=== PATIENT | male | born 1945 | race Caucasian/White ===

== ENCOUNTER → 2021-05-16 12:54 | Outpatient (CLI) | payer MEDICARE, OTHER, SELFPAY ==
--- NOTE | ~2021-05-16 | XR_ITS ---
XR chest 2V DATE: 05/16/2021 13:25 INDICATION: Cough. Acute bronchitis. TECHNIQUE: 2 views COMPARISON: 08/15/2015 2 view chest FINDINGS: There is prominent bilateral hyperinflation, relative flattening of the diaphragm, increase d retrosternal airspace, consistent with severe COPD. Relatively sparse lung markings in the upper vero ng zones especially on the right, likely due to bullous emphysema. There is interval patchy infiltrate in the right mid and particularly lower lung zone and left lower lobe since 08/15/2015, consistent with bilateral pneumonia and/or aspiration pneumonitis. There is levoscoliosis of the thoracic spine. There is diffuse osteopenia. IMPRESSION: Bilateral pulmonary infiltrates, including mid right and bilateral lower lung zones, sugg esting bilateral pneumonia. Aspiration pneumonitis is another consideration. Severe bullous emphysema Reviewed, dictated and finalized at location A. IMPRESSION: Bilateral pulmonary infiltrates, including mid right and bilateral lower lung zones, suggesting bilateral pneumonia. Aspiration pneumonitis is ano ther consideration. Severe bullous emphysema
== END ==
PROVIDERS: PCP Nurse Practitioner Family; Visit Provider Nurse Practitioner Family
DX: J20.9 Acute bronchitis, unspecified (principal); M85.88 Other specified disorders of bone density and structure, other site; F41.9 Anxiety disorder, unspecified; R91.8 Other nonspecific abnormal finding of lung field; J43.9 Emphysema, unspecified
CPT/HCPCS: 71046

== ENCOUNTER 2021-08-22 08:00 | Outpatient (CLI) | payer MEDICARE, OTHER, SELFPAY ==
--- NOTE | 2021-08-22 13:32 | WPDSIXMINUTE ---
Six Minute Walk Procedure Procedure Performed Pulmonary Stress Test (6 min walk) Six Minute Walk Six Minute Walk: This is a 6 minute walk test. The test was performed and interpreted in accordance with the 2014 ERS/ATS task force guidelines. Findings: The patient's resting room air oxygen saturation measured by pulse oximetry was 97% and heart rate was 71 bpm. Patient ambulated for 396 meters and oxygen saturation remained 92 to 98%. Heart rate at the end of the study was 103 bpm. The patient did not qualify for supplemental oxygen at rest or with ambulation. There are no prior studies for comparison.
--- NOTE | 2021-08-22 13:32 | WPDPFTINT ---
PFT Procedure Performed PFT Procedure Performed Spirometry with Pre/Post Bronchodilator Plethysmography (Lung Vol) Diffusing Cap (DLCO) Flow Vol Loop PFT Interpretation This is a pulmonary function test with pre and post-bronchodilator spirometry, plethysmography and diffusing capacity. The test was performed and results interpreted in accordance with the 2019 and 2005 ATS/ERS Task Force guidelines respectively using the Global Lung Function Initiative-2012 reference equations. Patient demonstrated good effort and cooperation. Reproducibility criteria were met. The quality of the pre bronchodilator spirometry maneuver was Grade A and post bronchodilator spirometry maneuver was Grade A. Findings: Spirometry: There is decreased maximal expiratory air flow at all lung volumes with concave expiratory flow tracing. The pre bronchodilator FVC is 3.58 L, 82% predicted. The pre bronchodilator FEV1 is 2.05 L, 63% predicted. The pre bronchodilator FEV1: FVC ratio is 57%. The post bronchodilator FVC is 4.44 L, representing a 24% increase. The post bronchodilator FEV1 is 2.25 L, representing a 10% increase. The post bronchodilator FEV1: FVC ratio is 51%. Plethysmography: The total lung capacity is 9.26 L, 124% predicted. Functional residual capacity is 4.50 L, 112% predicted. The residual volume is 3.90 L, 146% predicted. Diffusing capacity: The diffusing capacity unadjusted for hemoglobin and carboxyhemoglobin is 9.5, 37% predicted. The diffusing capacity adjusted for alveolar volume is 1.29, 35% predicted. Impression: There is a moderate obstructive abnormality with significant improvement after inhaling a single dose of albuterol. The increase in residual volume is consistent with air trapping from an obstructive abnormality. Hyperinflation is present is demonstrated by the increase in total lung capacity and is consistent with an obstructive abnormality. The diffusing capacity unadjusted for hemoglobin and carboxyhemoglobin is severely decreased and remains severely decreased when adjusted for alveolar volume. There are no prior studies for comparison
== END 2021-08-22 08:01 | disposition home or self-care (01) ==
LOC: ANHPFT 08:05
PROVIDERS: PCP Nurse Practitioner; Visit Provider Nurse Practitioner
DX: J43.9 Emphysema, unspecified (principal)
CPT/HCPCS: 94060; 94618; 94726; 94729

== ENCOUNTER → 2021-08-22 12:43 | Outpatient (CLI) | payer MEDICARE, OTHER, SELFPAY ==
--- NOTE | ~2021-08-22 | CT_ITS ---
EXAMINATION: CT lung screening DATE: 08/22/2021 12:59 INDICATION: Personal history of nicotine dependence, current smoker with 88.5 pack year history TECHNIQUE: Computed tomography (CT) of the chest was performed without intravenous contrast. The dose -length product (DLP) was 52.58 mGy-cm. Automated exposure control and iterative reconstruction techn [employer] were employed. COMPARISON: None FINDINGS: There is severe emphysema. There is a 7 mm nodule of the right middle lobe on image 110. No pleural effusion or pneumothorax. No pathologically enlarged thoracic lymph nodes are identified. Th e heart size is normal. Calcified coronary artery atherosclerosis is noted. There is mild thoracic sp ondylosis. IMPRESSION: 1. Lung-RADS category 3: Probably benign. Followup with noncontrast low-dose chest CT in 6 months is recommended. Reviewed, dictated and finalized at location F. IMPRESSION: 1. Lung-RADS category 3: Probably benign. Followup with noncontrast low-dose ch est CT in 6 months is recommended.
== END ==
PROVIDERS: PCP Nurse Practitioner Family; Visit Provider Nurse Practitioner
DX: Z12.2 Encounter for screening for malignant neoplasm of respiratory organs (principal); Z87.891 Personal history of nicotine dependence
CPT/HCPCS: 71271

== ENCOUNTER → 2022-02-18 10:18 | Outpatient (CLI) | payer MEDICARE, OTHER, SELFPAY ==
--- NOTE | ~2022-02-18 | CT_ITS ---
EXAMINATION: CT diagnostic chest wo con DATE: 02/18/2022 10:37 INDICATION: Solitary pulmonary nodule TECHNIQUE: Computed tomography (CT) of the chest was performed without intravenous contrast. The dose -length product (DLP) was 47.95 mGy-cm. Automated exposure control and iterative reconstruction techn ique were employed. COMPARISON: 08/22/2021 FINDINGS: There is severe emphysema. The previously described right middle lobe nodule is no longer e vident, consistent with resolved infection or inflammation. There is a new 8 mm nodule of the right l ower lobe on image 106. No pleural effusion or pneumothorax. No pathologically enlarged thoracic lymp h nodes are identified. The heart size is normal. There is mild thoracic spondylosis. IMPRESSION: 1. Resolved right middle lobe nodule and new right lower lobe nodule, likely infectious or inflammato ry. Follow-up low-dose chest CT in three months is recommended. Reviewed, dictated and finalized at location B. [employer] IMPRESSION: 1. Resolved right middle lobe nodule and new right lower lobe nodule, likely in fectious or inflammatory. Follow-up low-dose chest CT in three months is recomm ended.
== END ==
PROVIDERS: PCP Nurse Practitioner Family; Visit Provider Nurse Practitioner
DX: R91.1 Solitary pulmonary nodule (principal)
CPT/HCPCS: 71250

== ENCOUNTER 2022-05-19 09:48 | Outpatient (CLI) | payer MEDICARE, OTHER, SELFPAY ==
--- NOTE | ~2022-05-19 | CT_ITS ---
CT Scan of the Chest without Contrast: Clinical Indication: Solitary pulmonary nodule Technique: Contiguous sections were acquired throughout the chest without intravenous contrast. Dose reduction technique was used on this scan by utilizing automated exposure control and iterative recon struction technique. The dose-length product (DLP) was 41.21 mGy-cm. COMPARISON: 02/18/2022 Findings: There is no evidence of any significant mediastinal, hilar or axillary lymphadenopathy. The mediastin al soft tissues appear normal. There is no evidence of pleural or pericardial effusion. Severe emphysema is unchanged. No suspicious pulmonary nodule seen. Presented right lower lobe pulmon claudia nodules resolved. Images through the upper abdomen reveal no abnormalities. Impression: Severe emphysema. No suspicious pulmonary nodule seen. Reviewed, dictated and finalized at [facility]. Impression: Severe emphysema. No suspicious pulmonary nodule seen.
== END 2022-05-19 09:49 ==
PROVIDERS: PCP Nurse Practitioner Family; Visit Provider Nurse Practitioner
DX: R91.1 Solitary pulmonary nodule (principal); J43.9 Emphysema, unspecified
CPT/HCPCS: 71250

== ENCOUNTER 2022-05-30 11:30 | Emergency (ER) | payer MEDICARE, SELFPAY ==
--- NOTE | 2022-05-30 11:32 | ED.GENADULT ---
HPI - General Adult General Chief complaint: Urogenital-Male Stated complaint: uti/thrush Time Seen by Provider: 05/30/22 11:49 Source: patient, RN notes reviewed and old records reviewed Mode of arrival: ambulatory Limitations: no limitations History of Present Illness HPI narrative: 77-year-old male presents to the [facility] with concerns for a UTI and strep throat. Patient reports that he has had intermittent sore throat for about 2-3 weeks. Patient also reports urinary symptoms, frequency, urgency for 3-4 weeks. Reports he burning about a week to 2 weeks ago. States that his urine smelled funny. Denies any fevers. No nausea or vomiting. No urinary retention Denies abdominal pain, chest pain, shortness of breath Related Data Home Medications Medication Instructions Recorded Confirmed atorvastatin 40 mg tablet 40 mg PO DAILY 05/30/22 05/30/22 budesonide 160 mcg-glycopyr 9 1 inh inhalation DAILY 05/30/22 05/30/22 mcg-formot 4.8 mcg/actuation HFA inhaler (Breztri Aerosphere) lisinopril 5 mg tablet 5 mg PO DAILY 05/30/22 05/30/22 Allergies Allergy/AdvReac Type Severity Reaction Status Date / Time NKFA Allergy Unknown Other Uncoded 05/30/22 11:38 SULFA Allergy Unknown Other Uncoded 05/30/22 11:38 Review of Systems Review of Systems: All systems reviewed & are unremarkable except as noted in HPI and below Constitutional: Constitutional: Reports no additional constitutional complaints Eyes: Eyes: Reports no additional eye complaints ENT: Reports as per HPI Cardiovascular: Cardiovascular: Reports no additional cardiovascular complaints, Denies chest pain and Denies dyspnea Respiratory: Respiratory: Reports no additional respiratory complaints, Denies chest congestion, Denies cough and Denies dyspnea Gastrointestinal: Gastrointestinal: Reports no additional gastrointestinal complaints, Denies abdominal pain, Denies nausea and Denies vomiting Genitourinary: Genitourinary: Reports as per HPI Musculoskeletal: Musculoskeletal: Reports no additional musculoskeletal complaints Integumentary/Breasts: Skin/Breast: Reports system reviewed and no additional complaints, except as docu Neurologic: Reports system reviewed and no additional complaints, except as documented Psychiatric: Psychiatric: Reports no additional psychiatric complaints Allergic/Immunologic: Allergic/Immunologic: Reports no additional allergic/immunologic complaints PMFSH Past Medical History Medical History (Updated 04/08/23 @ 19:13 by Lindsey Fonseca APRN) High cholesterol History of high blood pressure Comments At the time of my signature, I reviewed and agree with the nursing past medical, surgical, social, and family history. There is no relevant family history pertinent to the patient complaint. Exam Const: General: cooperative, healthy appearing, comfortable, no acute distress, well developed, alert and well nourished Nutritional Appearance: well nourished and thin Orientation/consciousness: patient oriented x3 Limitations: no limitations HENMT: Head: normal to inspection Ears: hearing grossly normal bilaterally and external ears normal Face/Nose/Sinus: Normal external nose present, Normal nares present, Normal nasal mucous membranes and turbinates present and normal facial exam Face and sinus: normal facial exam Mouth: Yes Normal oral and palatal mucosa present, Yes lip normal and Yes moist mucous membranes Throat: posterior oropharynx normal, uvula midline and postnasal drainage Other: Upper dentures in place Eyes: General: appearance normal, both eyes and all related structures Alignment and Position: alignment normal Periorbital: periorbital findings normal Conjunctivae: conjunctivae normal Pupils: Equal, round and reactive pupils present EOM: EOMs intact bilaterally Neck: Neck: normal visual inspection, full ROM, no lymphadenopathy and no meningeal signs Chest: Chest palpation & inspection: normal inspection of t
[2022-05-30 11:41] VITALS: BP 119/66; PULSE 95; RESP 16; TEMP 36.3; O2SAT 98
== END 2022-05-30 12:15 | disposition home or self-care (01) ==
PROVIDERS: Emergency Provider Nurse Practitioner; PCP Nurse Practitioner Family
DX: R30.0 Dysuria (principal); R09.82 Postnasal drip; E78.00 Pure hypercholesterolemia, unspecified; I10 Essential (primary) hypertension
CPT/HCPCS: 81003; 87081; 87086; 87088; 87880; 99213; G0463

== ENCOUNTER 2023-02-08 11:20 | Outpatient (CLI) | payer MEDICARE, OTHER, SELFPAY ==
--- NOTE | ~2023-02-08 | US_ITS ---
Renal-Bladder ultrasound Clinical History: Hematuria Technique: Real-time sonographic imaging of the kidneys and urinary bladder was performed. Findings: The right kidney measures 10.9 cm in length and the left kidney measures 11.4 cm. There is no hydronephrosis or renal calculus identified. Renal cortical echogenicity is within normal limits. No renal mass lesion is identified. The urinary bladder is moderately distended at the time of this exam. No intraluminal echoes are iden tified. No abnormal wall thickening is seen. Impression: Unremarkable ultrasound of the kidneys and urinary bladder. Reviewed, dictated and finalized at location . [employer] Impression: Unremarkable ultrasound of the kidneys and urinary bladder.
== END 2023-02-08 11:21 ==
LOC: MICIMG 11:23
PROVIDERS: PCP Family Medicine; Visit Provider Family Medicine
DX: R31.9 Hematuria, unspecified (principal)
CPT/HCPCS: 76775

== ENCOUNTER 2023-05-10 08:46 | Outpatient (CLI) | payer MEDICARE, OTHER, SELFPAY ==
--- NOTE | ~2023-05-10 | CT_ITS ---
CT Scan of the Chest without Contrast: Clinical Indication: Lung cancer screening, smoking history Technique: Contiguous sections were acquired throughout the chest without intravenous contrast. Dose reduction technique was used on this scan by utilizing automated exposure control and iterative recon struction technique. The dose-length product (DLP) was 41.51 mGy-cm. COMPARISON: 05/11/2022 Findings: There is no evidence of any significant mediastinal, hilar or axillary lymphadenopathy. The mediastin al soft tissues appear normal. There is no evidence of pleural or pericardial effusion. Severe emphysema again noted. There is a large area of bright lower lobe consolidation with some air bronchograms present. There is focal area somewhat nodular consolidation at the left lung base. Images through the upper abdomen reveal no abnormalities. Impression: Lung RADS 2-S: Benign appearance. 12 month follow-up screening CT advised. Extensive right lower lobe consolidation and focal nodular consolidation left lower lobe. Findings co uld reflect pneumonia and/or atelectasis, however underlying neoplasm cannot be excluded. Short-term follow-up exam in 1-2 months recommended after appropriate interval therapy. Severe emphysema. Reviewed, dictated and finalized at location . Impression: Lung RADS 2-S: Benign appearance. 12 month follow-up screening CT advised. Extensive right lower lobe consolidation and focal nodular consolidation left l ower lobe. Findings could reflect pneumonia and/or atelectasis, however underly ing neoplasm cannot be excluded. Short-term follow-up exam in 1-2 months recomm ended after appropriate interval therapy. Severe emphysema.
== END 2023-05-10 08:47 ==
LOC: MICIMG 08:49
DX: Z12.2 Encounter for screening for malignant neoplasm of respiratory organs (principal); F17.210 Nicotine dependence, cigarettes, uncomplicated; J43.9 Emphysema, unspecified
CPT/HCPCS: 71271

== ENCOUNTER 2023-06-18 10:16 | Outpatient (CLI) | payer MEDICARE, OTHER, SELFPAY ==
--- NOTE | ~2023-06-18 | CT_ITS ---
CT Scan of the Chest without Contrast: Clinical Indication: Pneumonia Technique: Contiguous sections were acquired throughout the chest without intravenous contrast. Dose reduction technique was used on this scan by utilizing automated exposure control and iterative recon struction technique. The dose-length product (DLP) was 158.35 mGy-cm. COMPARISON: 05/10/2023 Findings: There is no evidence of any significant mediastinal, hilar or axillary lymphadenopathy. The mediastin al soft tissues appear normal. There is no evidence of pleural or pericardial effusion. Severe COPD/emphysema again present. There is improving focal consolidation the left lung base, mandy tible with improving pneumonia or resolving atelectatic change. Patchy consolidation is present throu ghout the right lower lobe, with additional involvement in the right middle lobe and inferior right u pper lobe, more extensive as compared to prior exam. There is additional focal consolidation in the p eripheral, inferior right upper lobe, new from prior exam (axial image 71). Images through the upper abdomen reveal increasing caliber of the visualized distal abdominal aorta w hich measures up to 3.3 cm in maximum diameter. Impression: Worsening patchy consolidation the right lower lobe with additional involvement in the right upper lo be and right middle lobe as compared to prior exam. Findings suggest worsening pneumonia. Underlying neoplasm cannot be excluded. Stable underlying severe COPD/emphysema. Improving atelectasis or pneumonia at the left lung base. Suspected infrarenal abdominal aortic aneurysm, partially imaged. Consider dedicated abdominal pelvic imaging to further assess. Reviewed, dictated and finalized at [facility]. Impression: Worsening patchy consolidation the right lower lobe with additional involvement in the right upper lobe and right middle lobe as compared to prior exam. Findi ngs suggest worsening pneumonia. Underlying neoplasm cannot be excluded. Stable underlying severe COPD/emphysema. Improving atelectasis or pneumonia at the left lung base. Suspected infrarenal abdominal aortic aneurysm, partially imaged. Consider dedi cated abdominal pelvic imaging to further assess.
== END 2023-06-18 10:17 ==
DX: J18.9 Pneumonia, unspecified organism (principal); R91.8 Other nonspecific abnormal finding of lung field
CPT/HCPCS: 71250

== ENCOUNTER 2023-12-13 09:19 | Outpatient (CLI) | payer MEDICARE, OTHER, SELFPAY ==
--- NOTE | ~2023-12-13 | CT_ITS ---
CT Scan of the Chest without Contrast: Clinical Indication: Pneumonia Technique: Contiguous sections were acquired throughout the chest without intravenous contrast. Dose reduction technique was used on this scan by utilizing automated exposure control and iterative recon struction technique. The dose-length product (DLP) was 156.58 mGy-cm. COMPARISON: 06/18/2023 Findings: There is no evidence of any significant mediastinal, hilar or axillary lymphadenopathy. There are ath erosclerotic calcifications of the aorta and coronary arteries. There is no evidence of pleural or pericardial effusion. Severe emphysema present. Probable scattered areas of parenchymal scarring. No definite acute pulmona ry consolidation evident. Previous noted right lower lobe pneumonia is essentially completely resolve d. Images through the upper abdomen reveal probable partially imaged infrarenal abdominal aortic aneurys m measuring at least 3 cm in diameter. Impression: Severe emphysema with areas of scattered scarring. Previously noted pneumonia is essentially complete ly resolved. Probable partially imaged infrarenal abdominal aortic aneurysm, measuring at least 3 cm in diameter. Consider dedicated imaging evaluation. Reviewed, dictated and finalized at location M. Impression: Severe emphysema with areas of scattered scarring. Previously noted pneumonia i s essentially completely resolved. Probable partially imaged infrarenal abdominal aortic aneurysm, measuring at le ast 3 cm in diameter. Consider dedicated imaging evaluation.
== END 2023-12-13 09:20 | disposition home or self-care (01) ==
LOC: MICIMG 09:21
PROVIDERS: PCP Nurse Practitioner; Visit Provider Nurse Practitioner
DX: J43.9 Emphysema, unspecified (principal); J18.9 Pneumonia, unspecified organism
CPT/HCPCS: 71250

== ENCOUNTER 2024-05-31 13:36 | Outpatient (CLI) | payer MEDICARE, SELFPAY ==
--- OUTSIDE RECORDS SUMMARY | 2024-05-31 15:12 | XMS_ITS | Data Portability ---
Author Organization [place] [facility], Main Office Address [address] [place] [address] Care Team Providers Care Vp Software Engineering Name Role Phone CLYDE MA Primary Care Provider [phone] Assessment Encounter Date Assessment Date Assessment LastModified by Organization Details LastModified Time 05/22/2022 05/22/2022 STATEMENT OF MEDICAL NECESSITY Mr Moran has tried and failed multiple inhalers He has done the best on Breztri 2 puffs BID To prevent exacerbation, hospitalization and he should remain on this [email or web address] Not available 05/22/2022 13:32:30 06/12/2022 06/12/2022 Medicare Wellness Exam --Continue current medications/treatm ents for chronic medical issues. --Recommend DEXA scan --Pneumonia vaccination, Pnuemovax 23 given today. --Flu vax not due until fall. --Recommend Hep B series. --Advanced directives information given. 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 --Recommend AAA screening, pt to f/u with cardiology. --Recommend routine yearly f/u for dental, vision, hearing evaluations. -- Hep C screening neg (2021). --Smoker-encourage d cessation. LDCT completed (02/18/23) with repeat done 05/19/22. Pt is scheduled to f/u with pulmonary on 11/23/22. --Recommend shingles vaccination --PSA wnl (05/16/21) --Recommend Tdap if not received in the past 10 years. Follow Up Appt/Problem Visit --Memory Impairment-Recurre nt. age-related changes vs Alzeheimers vs Dementia vs small vessel disease r/t smoking. Scores 30/30 on MMSE today (06/12/22), improvement from last time. Ok to resume Neuriva. Pt declines neuro referral and rx at this time. Discussed ongoing smoking may also contribute to narrowing of blood vessels in the brain. --Pulmonary Emphysema/COPD-Chr onic.Some improvement with addition of daily controller inhaler. Control could be better, suspect pt isn't entirely compliant with treatment regimen. Still smoking at least 1ppd. Encouraged pt to stop smoking. Discussed progressive nature of COPD at length. Encouraged proper breathing techniques. Advised compliance with supplemental O2, nebulizer and inhaled medications as directed. Encouraged patient to avoid cigarette smoke, allergens, and environmental pollutants. Advised HVAC filters be changed seasonally as well. Will check labs and refer for cardio-pumonary rehab. Continue to f/u with Farooq Stoll as scheduled. Reviewed pulmonary note from Farooq Stoll (05/22/22). Breztri 522aqp-6awn-8.8mcg HFA --Skin Ulcer-Chronic. Non-healing wound right inner thigh. Very concerned that this may be a malignancy. Referred to derm for further evaluation and tx. --Urinary Symptoms-New problem. Differentials Include-BPH, Prostatitis, UTI, Urethritis, Cystitis, Prostate Cancer. Will check PSA and UA. Discussed with pt that sx may also be medication related. Breztri contains glycopyrrolate, which is an anti-cholinergic. --Hearing Loss-Chronic. Bilat (left > right). Pt still declines ENT referral. --Cataracts-Chroni c. Referred to [facility] previously. --Muscle Weakness-Chronic. Sx are likely secondary to known copd, cardiac dysfunction, anemia, and weight loss. Recommend cardio-pulmonary therapy to improve breathing so pt is able to do some exercise -- Anemia-Unknown status. Will check labs to evaluate anemias. Likely also contributing to pts weakness, sob. Greater than 40 min spent in direct, [id number] consultation with patient. More than 50% of time spent on counseling and/or coordination of care. [email or web address] Not available 06/12/2022 19:11:36 Plan of Treatment Reminders Order Date Submit Date Provider Last Modified By Organization Details Last Modified Time Details Appointments None recorded. Lab urinalysis, dipstick 2022 023 [email or web address] [facility], [address] [place] [address] [address], [place], [address], 3 10:52:12 influenza virus A + B and SARS CoV 2 (COVID-19) and RSV RNA panel, BERNADETTE+probe, respiratory specimen 2022 023 [email or web address] [employer] [facility], [address], [place], [place], [address], 3 14:18:59 urinalysis, complete 2022 023 [employer] [facility], [address], [place], [place], [address], 3 10:58:17 PSA, serum or plasma 2022 023 [facility] [facility], [address], [place], [place], [address], 3 10:58:18 iron + TIBC + ferritin, serum 2022 023 [facility] [facility], [address], [place], [place], [address], 3 10:58:15 vitamin D, 25-hydroxy, total, serum 2022 023 [facility] [facility], [address], [place], [place], [address], 3 10:58:19 vitamin B12 + folate, serum or blood 2022 023 [facility], [address], [place], [place], [address], 3 10:58:18 CBC 2022 023 [employer] [facility], [address], [place], [place], [address], 3 10:58:16 CMP, serum or plasma 2022 023 [employer] [facility], [address], [place], [address], 3 10:58:[address] referral - Concerned lesion on right thigh is malignant 2022 023 [email or web address] Carola Chong MD, [address] [place], [address], 3 08:37:06 cardiopulmo nary rehab referral - Please call the pt to make an appt. Thank you 2022 023 [email or web address] [facility], [address] [facility], [place], [address], 3 08:37:04 ophthalmolo gist referral 2022 023 [email or web address] [employer], [address], [place], [address], 3 12:01:02 Procedures None recorded. Surgeries None recorded. Imaging None recorded. Medication Orders Zithromax Z-Dion 250 mg tablet 2022 023 [email or web address] [id number], [address] [place], [address], 3 10:25:49 Breztri Aerosphere 160 mcg-9mcg-4. 8mcg/actuat ion HFA aerosol inhaler 2022 023 [id number], [address] [facility], [place], [place], [id number], 3 12:37:04 Mucinex 1,200 mg tablet, extended release 2022 023 [place] [id number], [address] [place], [place], [id number], 3 12:36:00 benzonatate 200 mg capsule 2022 023 JENNIFER [facility]24238, [address] [place], [place], [id number], 3 12:36:24 Breztri Aerosphere 160 mcg-9mcg-4. 8mcg/actuat ion HFA aerosol inhaler 2022 023 [email or web address] 5 [facility][id number], [address] [place], [place], [id number], 18:40:35 Patient TargetsNo targets recorded. Patient Instructions Encounter Date Encounter Id Patient Instructions Last Modified By Organization Details Last Modified Time 06/12/2022 [id number] dementia rating scale-2* [email or web address] Not available 06/15/2022 10:48:28 risk assessment* [email or web address] Not availabl e 06/12/2022 19:08:26 alcohol misuse* Not available 06/12/2022 19:08:50 mini mental stat e exam* [email or web address] Not available 06/12/2022 19:01:29 multi-dimensiona l health assessment questionnaire* [email or web address] Not available 06/12/2022 19:08:26 care plan* [email or web address] Not available 05/24 19:08:26 advance care planning: care instructions [email or web address] Not available 06/12/2022 19:08:26 advance directiv es: care instructions [email or web address] Not available 06/12/2022 19:08:26 [place] Advance Directives [email or web address] Not available 06/12/2022 19:08:26 Personalized a [facility] Plan and Screening Recommendations Advance Directives - Do you have one? No You have indicated that you are capable of preparing your advance care directive Advance Directives - Do we have your advance directive on file in your health record? Primary Prevention/Interven tion (prevents or decreases the chance of common diseases from occurring) Smoking Risk: Smoker Refer to attached smoking cessation handouts Refer to attached handouts and prescription will be sent to pharmacy Continue to consider stopping smoking and call if we can assist you Alcohol Misuse Screening: Negative Weight: Underweight monitor weight weekly and call if continue to lose weight Physical activity: Need more exercise/physical activity minimum of 10-20 minutes of activity that causes mild breathlessness/day Nutrition: Good Average Recommend consultation with a behavioral psychologist Fall Risk (screened today): Low Intermediate Refer to attached handout Preventing Falls: After your Visit Recommend regular use of cane or walker Vaccines Pneumococcal: Ordered Influenza: Your next one in the fall of this year Chronic Disease Risks Stroke: Low Risk Intermediate Risk I have no recommendations Act nichole diagnosis, Continue current treatment plan Heart Attack: Low risk Intermediate Risk I have no recommendations Act nichole diagnosis, Continue current treatment plan Clogging of the Arteries: Low risk Intermediate Risk I have no recommendations Act nichole diagnosis, Continue current treatment plan Diabetes: Low Risk Active diagnosis, Continue current treatment plan Secondary Prevention/Interven tion (detects treatable diseases before they may cause symptoms, disability, or ) Prostate Cancer Screening: Your next PSA in: [place] Cancer Screening: No screening necessary Date Screening Last Performed: Eye Disease Screening: Ordered Recommended today Dementia Risk: Low Intermediate Depression Screening: Negative Active diagnosis, Continue current treatment plan Not available 06/12/2022 19:10:10 Reason for Referral Bag Maker Referral for Bilateral cataracts Referring Physician: Clyde Ma [facility], Encounter Date: 05/21/2022 Cardiopulmonary Rehab Referr al for Chronic obstructive pulmonary disease Please call the pt to make an appt. Thank you Referring Physician: Clyde Ma [facility], Encounter Date: 06/12/2022 Home Aid Referral for C hronic ulcer of skin Concerned lesion on right thigh is malignant Referring Physician: Clyde Ma [facility], Encounter Date: 06/12/2022 Results Created Date Observation Date Name Description Value Unit Range Abnormal Flag Note LastModifiedBy Organization Detail LastModifiedTime 06/14/19 23 06/16/2022 IRON, TIBC AND LILIBETH TIN PANEL iron, total 88 mcg/d L 50-180 normal Not Available [address], [address], 06/16/2022 10:58:15 06/14/19 23 06/16/2022 IRON, TIBC AND LILIBETH TIN PANEL iron binding capacity 321 mcg/d L_(ca lc) 250-42 5 normal Not Available [address], [address], 06/16/2022 10:58:15 06/14/19 23 06/16/2022 IRON, TIBC AND LILIBETH TIN PANEL % saturation 27 %_(ca lc) 20-48 normal Not Available [address], [address], 06/16/2022 10:58:15 06/14/19 23 06/16/2022 IRON, TIBC AND LILIBETH TIN PANEL ferritin 128 NG/mL 24-380 normal Not Available [address], [address], 06/16/2022 10:58:15 06/14/19 23 06/16/2022 COMPR EHENS NICHOLE METAB OLIC PANEL glucose 101 mg/dL 65-99 high Fasti ng refer ence inter shaina For someo ne witho ut known diabe arminda, a gluco se value betwe en 100 and 125 mg/dL is consi stent with predi abete s and shoul d be confi rmed with a follo w-up test. Not Available [address], [address], 06/16/2022 10:58:16 06/14/19 23 06/16/2022 COMPR EHENS NICHOLE METAB OLIC PANEL urea nitrogen (BUN) 8 mg/dL 7-25 normal Not Available [address], [address], 06/16/2022 10:58:16 06/14/19 23 06/16/2022 COMPR EHENS NICHOLE METAB OLIC PANEL creatinine 0.83 mg/dL 0.70-1 .28 normal Not Available [address], [address], 06/16/2022 10:58:16 06/14/19 23 06/16/2022 COMPR EHENS NICHOLE METAB OLIC PANEL eGFR 91 mL/mi n/1.7 3m2 > or = 60 normal The eGFR is based on the CKD-E PI 2020 equat ion. To calcu late the new eGFR from a previ ous Creat inine or Cysta tin C resul t, go to https ://yudelka jeronimo.thierry maldonado.chaz camacho/sangeetha lucas s/ kdoqi /gfr% 5Fcal culat or Not Available [address], [address], 06/16/2022 10:58:16 06/14/19 23 06/16/2022 COMPR EHENS NICHOLE METAB OLIC PANEL BUN/creatini ne ratio NOT APPLIC ABLE (calc ) 6-22 Not Available [address], [address], 06/16/2022 10:58:16 06/14/19 23 06/16/2022 COMPR EHENS NICHOLE METAB OLIC PANEL sodium 142 mmol/ L 135-14 6 normal Not Available [address], [address], 06/16/2022 10:58:16 06/14/19 23 06/16/2022 COMPR EHENS NICHOLE METAB OLIC PANEL potassium 3.9 mmol/ L 3.5-5. 3 normal Not Available [address], [address], 06/16/2022 10:58:16 06/14/19 23 06/16/2022 COMPR EHENS NICHOLE METAB OLIC PANEL chloride 107 mmol/ L 98-110 normal Not Available [address], [address], 06/16/2022 10:58:16 06/14/19 23 06/16/2022 COMPR EHENS NICHOLE METAB OLIC PANEL carbon dioxide 29 mmol/ L 20-32 normal Not Available [address], [address], 06/16/2022 10:58:16 06/14/19 23 06/16/2022 COMPR EHENS NICHOLE METAB OLIC PANEL calcium 9.1 mg/dL 8.6-10 .3 normal Not Available [address], [address], 06/16/2022 10:58:16 06/14/19 23 06/16/2022 COMPR EHENS NICHOLE METAB OLIC PANEL protein, total 6.8 g/dL 6.1-8. 1 normal Not Available [address], [address], 06/16/2022 10:58:16 06/14/19 23 06/16/2022 COMPR EHENS NICHOLE METAB OLIC PANEL albumin 3.9 g/dL 3.6-5. 1 normal Not Available [address], [address], 06/16/2022 10:58:16 06/14/19 23 06/16/2022 COMPR EHENS NICHOEL METAB OLIC PANEL globulin 2.9 g/dL_ (calc ) 1.9-3. 7 normal Not Available [address], [address], 06/16/2022 10:58:16 06/14/19 23 06/16/2022 COMPR EHENS NICHOLE METAB OLIC PANEL albumin/glob ulin ratio 1.3 (calc ) 1.0-2. 5 normal Not Available [address], [address], 06/16/2022 10:58:16 06/14/19 23 06/16/2022 COMPR EHENS NICHOLE METAB OLIC PANEL bilirubin, total 0.4 mg/dL 0.2-1. 2 normal Not Available [address], [address], 06/16/2022 10:58:16 06/14/19 23 06/16/2022 COMPR EHENS NICHOLE METAB OLIC PANEL alkaline phosphatase 68 U/L 35-144 normal Not Available [facility] [employer] [address], [address], 06/16/2022 10:58:16 06/14/19 23 06/16/2022 COMPR EHENS NICHOLE METAB OLIC PANEL AST 19 U/L 10-35 normal Not Available [address], [address], 06/16/2022 10:58:16 06/14/19 23 06/16/2022 COMPR EHENS NICHOLE METAB OLIC PANEL ALT 16 U/L 9-46 normal Not Available [address], [address], 06/16/2022 10:58:16 06/14/19 23 06/16/2022 CBC (H/H, RBC, INDIC ES, WBC, PLT) white blood cell count 7.4 thous and/u L 3.8-10 .8 normal Not Available [address], [address], 06/16/2022 10:58:16 06/14/19 23 06/16/2022 CBC (H/H, RBC, INDIC ES, WBC, PLT) red blood cell count 4.06 chacho on/uL 4.20-5 .80 low Not Available [address], [address], 06/16/2022 10:58:16 06/14/19 23 06/16/2022 CBC (H/H, RBC, INDIC ES, WBC, PLT) hemoglobin 11.9 g/dL 13.2-1 7.1 low Not Available [address], [address], 06/16/2022 10:58:16 06/14/19 23 06/16/2022 CBC (H/H, RBC, INDIC ES, WBC, PLT) hematocrit 37.1 % 38.5-5 0.0 low Not Available [address], [address], 06/16/2022 10:58:16 06/14/19 23 06/16/2022 CBC (H/H, RBC, INDIC ES, WBC, PLT) MCV 91.4 fL 80.0-1 00.0 normal Not Available [address], [address], 06/16/2022 10:58:16 06/14/19 23 06/16/2022 CBC (H/H, RBC, INDIC ES, WBC, PLT) MCH 29.3 pg 27.0-3 3.0 normal Not Available [address], [address], 06/16/2022 10:58:16 06/14/19 23 06/16/2022 CBC (H/H, RBC, INDIC ES, WBC, PLT) MCHC 32.1 g/dL 32.0-3 6.0 normal Not Available [address], [address], 06/16/2022 10:58:16 06/14/19 23 06/16/2022 CBC (H/H, RBC, INDIC ES, WBC, PLT) RDW 16.0 % 11.0-1 5.0 high Not Available [address], [address], 06/16/2022 10:58:16 06/14/19 23 06/16/2022 CBC (H/H, RBC, INDIC ES, WBC, PLT) platelet count 390 thous and/u L 140-40 0 normal Not Available [address], [address], 06/16/2022 10:58:16 06/14/19 23 06/16/2022 CBC (H/H, RBC, INDIC ES, WBC, PLT) MPV 10.0 fL 7.5-12 .5 normal Not Available [address], [address], 06/16/2022 10:58:16 06/14/19 23 06/16/2022 URINA LYSIS , COMPL ETE color DARK YELLOW yellow normal Not Available [address], [address], 06/16/2022 10:58:17 06/14/19 23 06/16/2022 URINA LYSIS , COMPL ETE appearance CLEAR clear normal Not Available [address], [address], 06/16/2022 10:58:17 06/14/19 23 06/16/2022 URINA LYSIS , COMPL ETE specific gravity 1.017 1.001- 1.035 normal Not Available [address], [address], 06/16/2022 10:58:17 06/14/19 23 06/16/2022 URINA LYSIS , COMPL ETE pH 6.0 5.0-8. 0 normal Not Available [address], [address], 06/16/2022 10:58:17 06/14/19 23 06/16/2022 URINA LYSIS , COMPL ETE glucose NEGATI VE negati ve normal Not Available [address], [address], 06/16/2022 10:58:17 06/14/19 23 06/16/2022 URINA LYSIS , COMPL ETE bilirubin NEGATI VE negati ve normal Not Available [address], [address], 06/16/2022 10:58:17 06/14/19 23 06/16/2022 URINA LYSIS , COMPL ETE ketones NEGATI VE negati ve normal Not Available [address], [address], 06/16/2022 10:58:17 06/14/19 23 06/16/2022 URINA LYSIS , COMPL ETE occult blood NEGATI VE negati ve normal Not Available [address], [address], 06/16/2022 10:58:17 06/14/19 23 06/16/2022 URINA LYSIS , COMPL ETE protein NEGATI VE negati ve normal Not Available [address], [address], 06/16/2022 10:58:17 06/14/19 23 06/16/2022 URINA LYSIS , COMPL ETE nitrite NEGATI VE negati ve normal Not Available [address], [address], 06/16/2022 10:58:17 06/14/19 23 06/16/2022 URINA LYSIS , COMPL ETE leukocyte esterase NEGATI VE negati ve normal Not Available [address], [address], 06/16/2022 10:58:17 06/14/19 23 06/16/2022 URINA LYSIS , COMPL ETE WBC NONE SEEN /hpf < or = 5 normal Not Available [address], [address], 06/16/2022 10:58:17 06/14/19 23 06/16/2022 URINA LYSIS , COMPL ETE RBC 0-2 /hpf < or = 2 normal Not Available [facility] [address] [address] [place], [address], 06/16/2022 10:58:17 06/14/19 23 06/16/2022 URINA LYSIS , COMPL ETE squamous epithelial cells NONE SEEN /hpf < or = 5 normal Not Available [facility] [address] [address] [place], [address], 06/16/2022 10:58:17 06/14/19 23 06/16/2022 URINA LYSIS , COMPL ETE bacteria NONE SEEN /hpf none seen normal Not Available [facility] [address] [address] [place], [address], 06/16/2022 10:58:17 06/14/19 23 06/16/2022 URINA LYSIS , COMPL ETE hyaline cast NONE SEEN /lpf none seen normal Not Available [facility] [address], [address], 06/16/2022 10:58:17 06/14/19 23 06/16/2022 PSA, TOTAL PSA, total 2.90 NG/mL < or = 4.00 normal The total PSA value from this assay syste m is stand ardiz ed again st the WHO stand ariella. The test resul t will be appro ximat cata 20% lower when mandy red to the equim olar- stand ardiz ed total PSA ([place] man Coult er). Mandy rison of seria l PSA resul ts shoul d be inter prete d with this fact in mind. This test was perfo rmed using the Sieme ns chemi lumin escen t metho d. Value s obtai king from diffe rent assay metho ds canno t be used inter de jesus eably . PSA level s, regar dless of value , shoul d not be inter prete d as absol enterprise evide nce of the prese nce or absen ce of disea se. Not Available [facility] [address] [place] [address] [place], [address], 06/16/2022 10:58:18 06/14/19 23 06/16/2022 VITAM IN B12/F OLATE , SERUM PANEL vitamin B12 510 pg/mL 200-11 00 normal Not Available [facility] [address] [place], [address], 06/16/2022 10:58:18 06/14/19 23 06/16/2022 VITAM IN B12/F OLATE , SERUM PANEL folate, serum 7.8 NG/mL normal Refer ence Range Low: <3.4 Borde rline : 3.4-5 .4 Hillary l: >5.4 Not Available [facility] [address] [place], [address], 06/16/2022 10:58:18 06/14/19 23 06/16/2022 QUEST ASSUR ED(TM ) 25 HYDRO XYVIT CARR D(D2, D3) vitamin D, 25-oh, total 24 NG/mL 30-100 low (Note ) Vitam in D, 25-Hy droxy repor ts bud ntrat ions of two commo n forms , 25-OH D2 and 25-OH D3. 25-OH D3 indic ates both endog enous produ ction and suppl ement ation . 25-OH D2 is an indic ator of exoge nous sourc es such as diet or suppl ement ation . Thera py is based on measu remen t of Total 25-OH D, with level s <20 ng/mL indic ative of Vitam in D defic iency , while level s betwe en 20 ng/mL and 30 ng/mL sugge st insuf ficie ncy. Optim al level s are > or = 30 ng/mL . Vitam in D is fat-s olubl e and there fore inadv erten t or inten roro l inges tion of exces sivel y high amoun ts could be toxic . Studi es in child chapin and adult s sugge st blood level s would need to excee d 150 ng/mL befor e there is any bud rn. Timothy michelle MF, Fredo kruger NC, Beatrice off-f errar i ADAM, et al. Evalu ation , treat ment and preve ntion of vitam in D defic iency : an Endoc rine Socie ty clini zack pract ice guide line. J Clin Endoc rinol Metab . 2011; 96(7) :1911 -30. For addit ional infor kelley bautista refer to http: //[facility] carrera.Que stDia gnost ics.c om/fa q/FAQ 199 Not Available [address] [place] [address] [place], [address], 06/16/2022 10:58:19 06/14/19 23 06/16/2022 QUEST ASSUR ED(TM ) 25 HYDRO XYVIT CARR D(D2, D3) vitamin D, 25-oh, D3 24 NG/mL Refer ence range : Not estab lishe d Not Available [address] [address] [place], [address], 06/16/2022 10:58:19 06/14/19 23 06/16/2022 QUEST ASSUR ED(TM ) 25 HYDRO XYVIT CARR D(D2, D3) vitamin D, 25-oh, D2 <4.0 NG/mL (Note ) Refer ence range : Not estab lishe d This test was devel oped and its charu tical perfo rmanc e nina cteri stics have been deter mined by [employer] ervin. It has not been clear ed or appro carlton by the [place] Food and Drug Admin istra tion. This assay has been valid ated pursu ant to the CLIA regul ation and is used for Clini zack purpo ses. MDF med fusio n [address] [facility] [address] [facility] [address] [phone] Shalom peterson MD See Note 1 Note 1 For addit ional infor kelley bautista refer to http: //[facility] deep [email or web address].Que stDia gnost ics.c om/fa q/FAQ 199 (This link is being provi ded for infor harsha cordova/ educa roro l purpo ses only. ) Not Available [employer] [place] [address] [place], [address], 06/16/2022 10:58:19 01/28/2001/27/2023 urina lysis , dipst ick Leukocytes (reference range: negative antoine/ l) Negati ve Not Available [address], [place], [address], 01/27/2023 09:40:31 01/28/2001/27/2023 urina lysis , dipst ick Nitrite (reference rage: negative mg/dl) negati ve Not Available [address], [place], [address], 01/27/2023 09:40:31 01/28/20 23 01/27/2023 urina lysis , dipst ick Urobilinogen (reference range: 0.2-1 mg/dl) 8 Not Available [address], [place], [address], 01/27/2023 09:40:31 01/28/2001/27/2023 urina lysis , dipst ick Protein (reference range: negative mg/dl) Small Not Available [address], [place], [address], 01/27/2023 09:40:31 01/28/20 23 01/27/2023 urina lysis , dipst ick pH (reference range: 5-7) 5.5 Not Available [address], [place], [address], 01/27/2023 09:40:31 01/28/20 23 01/27/2023 urina lysis , dipst ick Blood (reference range: negative Gonzalo/ l) Modera te Not Available [address], [place], [address], 01/27/2023 09:40:31 01/28/20 23 01/27/2023 urina lysis , dipst ick Specific [place] (reference range: 1.005-1.030) 1.025 Not Available [address], [place], [address], 01/27/2023 09:40:31 01/28/20 23 01/27/2023 urina lysis , dipst ick Ketone (reference range: negative mg/dl) Trace Not Available [address], [place], [address], 01/27/2023 09:40:31 01/28/20 23 01/27/2023 urina lysis , dipst ick Bilirubin (reference range: negative mg/dl) Modera te Not Available [address], [place], [address], 01/27/2023 09:40:31 01/28/20 23 01/27/2023 urina lysis , dipst ick Glucose (reference range: negative mg/dl) Negati ve Not Available [address], [place], [address], 01/27/2023 09:40:31 01/28/20 23 01/27/2023 urina lysis , dipst ick Appearance Clear Not Available [address], [place], [address], 01/27/2023 09:40:31 01/28/20 23 01/27/2023 urina lysis , dipst ick Color Dark Yellow Not Available [address], [place], [address], 01/27/2023 09:40:31 12/01/11 2302/02/2023 PSA, TOTAL PSA, total 3.28 NG/mL < or = 4.00 normal The total PSA value from this assay syste m is stand ardiz ed again st the WHO stand ariella. The test resul t will be appro ximat cata 20% lower when mandy red to the equim olar- stand ardiz ed total PSA ([place] man Coult er). Mandy rison of seria l PSA resul ts shoul d be inter prete d with this fact in mind. This test was perfo rmed using the i3 membrane chemi lumin escen t metho d. Value s obtai king from diffe rent assay metho ds canno t be used inter de jesus eably . PSA level s, regar dless of value , shoul d not be inter prete d as absol enterprise evide nce of the prese nce or absen ce of disea se. Not Available [facility] [address], [address], 02/02/2023 04:51:51 02/09/2002/09/2023 IRON AND TOTAL IRON ALAINA NG CAPAC ITY iron, total 111 mcg/d L 50-180 normal Not Available [facility] [address], [address], 02/09/2023 07:01:13 02/09/20 23 02/09/2023 IRON AND TOTAL IRON ALAINA NG CAPAC ITY iron binding capacity 355 mcg/d L_(ca lc) 250-42 5 normal Not Available [facility] [address], [address], 02/09/2023 07:01:13 02/09/20 23 02/09/2023 IRON AND TOTAL IRON ALAINA NG CAPAC ITY % saturation 31 %_(ca lc) 20-48 normal Not Available [address], [address], 02/09/2023 07:01:13 02/09/20 23 02/09/2023 CBC (INCL UDES DIFF/ PLT) white blood cell count 7.3 thous and/u L 3.8-10 .8 normal Not Available [address], [address], 02/09/2023 07:01:15 02/09/20 23 02/09/2023 CBC (INCL UDES DIFF/ PLT) red blood cell count 3.94 chacho on/uL 4.20-5 .80 low Not Available [address], [address], 02/09/2023 07:01:15 02/09/2002/09/2023 CBC (INCL UDES DIFF/ PLT) hemoglobin 11.4 g/dL 13.2-1 7.1 low Not Available [address], [address], 02/09/2023 07:01:15 02/09/20 23 02/09/2023 CBC (INCL UDES DIFF/ PLT) hematocrit 36.4 % 38.5-5 0.0 low Not Available [address], [address], 02/09/2023 07:01:15 02/09/20 23 02/09/2023 CBC (INCL UDES DIFF/ PLT) MCV 92.4 fL 80.0-1 00.0 normal Not Available [address], [address], 02/09/2023 07:01:15 02/09/20 23 02/09/2023 CBC (INCL UDES DIFF/ PLT) MCH 28.9 pg 27.0-3 3.0 normal Not Available [address], [address], 02/09/2023 07:01:15 02/09/20 23 02/09/2023 CBC (INCL UDES DIFF/ PLT) MCHC 31.3 g/dL 32.0-3 6.0 low Not Available [address], [address], 02/09/2023 07:01:15 02/09/2002/09/2023 CBC (INCL UDES DIFF/ PLT) RDW 15.9 % 11.0-1 5.0 high Not Available [address], [address], 02/09/2023 07:01:15 02/09/20 23 02/09/2023 CBC (INCL UDES DIFF/ PLT) platelet count 460 thous and/u L 140-40 0 high Not Available [facility] [address], [address], 02/09/2023 07:01:15 02/09/2002/09/2023 CBC (INCL UDES DIFF/ PLT) MPV 10.3 fL 7.5-12 .5 normal Not Available [address], [address], 02/09/2023 07:01:15 02/09/20 23 02/09/2023 CBC (INCL UDES DIFF/ PLT) absolute neutrophils 4964 cells /uL 1500-7 800 normal Not Available [address], [address], 02/09/2023 07:01:15 02/09/20 23 02/09/2023 CBC (INCL UDES DIFF/ PLT) absolute lymphocytes 1840 cells /uL 850-39 00 normal Not Available [address], [address], 02/09/2023 07:01:15 02/09/2002/09/2023 CBC (INCL UDES DIFF/ PLT) absolute monocytes 453 cells /uL 200-95 0 normal Not Available [address], [address], 02/09/2023 07:01:15 02/09/20 23 02/09/2023 CBC (INCL UDES DIFF/ PLT) absolute eosinophils 22 cells /uL 15-500 normal Not Available [address], [address], 02/09/2023 07:01:15 02/09/20 23 02/09/2023 CBC (INCL UDES DIFF/ PLT) absolute basophils 22 cells /uL 0-200 normal Not Available [address], [address], 02/09/2023 07:01:15 02/09/20 23 02/09/2023 CBC (INCL UDES DIFF/ PLT) neutrophils 68 % normal Not Available [address], [address], 02/09/2023 07:01:15 02/09/20 23 02/09/2023 CBC (INCL UDES DIFF/ PLT) lymphocytes 25.2 % normal Not Available [address], [address], 02/09/2023 07:01:15 02/09/20 23 02/09/2023 CBC (INCL UDES DIFF/ PLT) monocytes 6.2 % normal Not Available [address], [address], 02/09/2023 07:01:15 02/09/20 23 02/09/2023 CBC (INCL UDES DIFF/ PLT) eosinophils 0.3 % normal Not Available [address], [address], 02/09/2023 07:01:15 02/09/20 23 02/09/2023 CBC (INCL UDES DIFF/ PLT) basophils 0.3 % normal Not Available [address], [address], 02/09/2023 07:01:15 02/09/20 23 02/09/2023 VITAM IN D,25- OH,TO MARTINEZ,I A vitamin D,25-oh,tota l,ia 36 NG/mL 30-100 normal Vitam in D Statu s 25-OH Vitam in D: Defic iency : <20 ng/mL Insuf ficie ncy: 20 - 29 ng/mL Optim al: > or = 30 ng/mL For 25-OH Vitam in D testi ng on patie nts on D2-koehler pplem entat ion and patie nts for whom quant itati on of D2 and D3 fract ions is requi red, the [facility] Assur eD(TM ) 25-OH VIT D, (D2,D 3), LC/MS /MS is recom lyly d: order code 94672 (amol ents >2yrs ). See Note 1 Note 1 For addit ional infor kelley bautista refer to http: //[email or web address] deep [email or web address] stDia [email or web address] om/fa q/FAQ 199 (This link is being provi ded for infor harsha cordova/ educselwyn palumbo purpo ses only. ) Not Available [facility] [address] [place], [address], 02/09/2023 07:01:16 05/20/19 23 05/19/2022 CT, chest , w/o contr ast No observ ation record ed. [email or web address] [facility] [address], [place], [address], 05/20/2022 14:07:33 05/20/19 23 05/19/2022 CT, chest , w/o contr ast No observ ation record ed. [facility] [address], [place], [address], 05/25/2022 16:21:13 02/09/20 23 02/08/2023 US, kidne y No observ ation record ed. [email or web address] [facility] [address], [place], [address], 02/09/2023 14:03:01 Result Notes None recorded. Problems Name Problem SNOMED Code Status Onset Date Resolution Date Notes Provider Name and Address Organization Details Recorded Time Placement of stent Active 2021 Not Available [facility] 3 00:59:46 Chronic obstructive pulmonary disease 13290118 Active 2021 Not Available [facility] 3 00:59:46 Myocardial infarction 06329845 Active 2021 Not Available [facility] 3 00:59:46 Moderate chronic obstructive pulmonary disease 546977821 Active 2021 Not Available [facility] 3 00:59:46 Solitary nodule of lung 164895931 Active 2021 Not Available [facility] 3 00:59:46 Dyspnea on exertion 50708925 Active 2021 Not Available [facility] 3 00:59:46 Allergic rhinitis 68962073 Active 2021 Not Available [facility] 3 00:59:47 Chronic cough 89393565 Active 2021 Not Available [facility] 3 00:59:47 Liver enzymes level above reference range 165957755 Active 2021 Not Available [facility] 3 00:59:47 Posterior rhinorrhea 17158862 Active 2021 Not Available [facility] 3 00:59:47 Candidiasis of mouth 56240015 Active 2021 Not Available [facility] 3 00:59:47 Pulmonary emphysema 88345323 Active 2021 Not Available [facility] 3 00:59:47 Cough 55565719 Active 2022 Guerita Daniels MD [address], [address], [place], [address] , [employer] [facility] [employer] [facility] 3 12:41:28 Hearing loss 84005963 Active 2022 ALEX Golden [address], [address], [place], [address] , [employer] [facility] [employer] [facility] 3 14:50:18 Bilateral cataracts 92463805 Active 2022 ALEX Golden [address], [address], [place], [address] , [employer] 3 14:52:47 Acute sinusitis 28671285 Active 2022 ALEX Golden [address], [address], [place], [address] , [employer] 3 18:43:59 Thick sputum 766391342 Active 2022 ALEX Bledsoe-BC [address], [address], [place], [address] , [employer] 3 12:35:20 Nicotine dependence 37488156 Active 2022 ALEX Bledsoe-BC [address], [address], [place], [address] , [employer] 3 13:33:25 Multiple nodules of lung 888693190 Active 2022 Alona Stoll [employer]-BC [address], [address], [place], [address] , [employer] 3 13:34:19 Chronic ulcer of skin 49996452 Active 2022 ALEX Golden [address], [address], [place], [address] , [employer] 3 12:10:24 Muscle weakness 43494463 Active 2022 ALEX Golden [address], [address], [place], [address] , [employer] 3 12:19:29 Anemia 237379591 Active 2022 ALEX Golden [address], [address], [place], [address] , [employer] 3 12:26:17 Memory impairment 001214068 Active 2022 ALEX Golden [address], [address], [place], [address] , [place] - [employer] [facility] 3 12:30:21 Urinary symptoms 510510068 Active 2022 Blairmonika ALEX Ma [address], [address], [place], [address] , [place] [facility] 3 12:41:42 Vitamin D deficiency 96593760 Active 2022 ALEX Golden [address], [address], [place], [address] , [employer] [place] [employer] [facility] 3 15:16:31 Dysuria 77259434 Active 2022 ALEX Rodriguez-C [address], [address], [place], [address] , [place] - [facility] [employer] [facility] 3 09:40:27 Blood in urine 92983305 Active 2022 KALYAN RodriguezC [address], [address], [place], [address] , [employer] [place] [employer] [facility] 3 16:44:13 Problem Notes None recorded. Procedures Surgical History Date Name Laterality Status Provider Name and Address Organization Details Recorded Time Medicare Wellness CPT Code, subsequent completed BlairALEX Casey [address], [address], [place], [address], [employer] [facility] [employer] [facility] 06/12/2022 19:02:06 Hernia repair w/mesh completed [facility] Available [facility] 04/23/2022 00:58:24 Cardiac Stent Placement completed Not Available [facility] 04/23/2022 00:58:24 tonsilectomy/a denoids completed Not Available [facility] 04/23/2022 00:58:24 Imaging Results Imaging Date Name Status LastModified by [facility] Details LastModified Time 05/19/2022 CT, chest, w/o contrast completed [email or web address] [facility] [address], [place], [address], 05/20/2022 14:07:33 05/19/2022 CT, chest, w/o contrast completed [email or web address] [facility] [address], [place], [address], 05/25/2022 16:21:13 02/08/2023 US, kidney completed [email or web address] [facility] [address], [place], [address], 02/09/2023 14:03:01 Procedure Notes None recorded. Medical Equipment None Reported. Allergies Allergen ID Allergen Name Allergen Category Reaction Reaction Severity Criticality Documentation Date Start Date Code Code System Note Provider Name and Address Organization Details Recorded Time 57736 Substance with sulfonami de structure and antibacte rial mechanism of action (substanc e) medicatio n Not available Not available Not available 04/23/2022 15945 8003 SNOMED Not Available [facility] 01:01:02 Medications Name Sig Start Date Stop Date Status Note LastModified by Organization Details LastModified Time atorvastati n 40 mg tablet TAKE 1 TABLET BY MOUTH DAILY active Not Available Not Available No t Available nystatin 100,000 unit/mL oral suspension Take 5 mL 4 times a day by oral route as directed for 10 days. active Not Available Not Available No t Available doxycycline hyclate 100 mg capsule TAKE 1 CAPSULE BY MOUTH TWICE DAILY FOR 7 DAYS 06/12 completed Not Available Not Available Not Available atorvastati n 10 mg tablet TAKE 1 TABLET BY MOUTH EVERY DAY 06/12 completed Not Available Not Available Not Available oxybutynin chloride ER 10 mg tablet,exte nded release 24 hr Take 1 tablet every day by oral route for 30 days. 09/10 completed Not Available Not Available Not Available azithromyci n 250 mg tablet TAKE 2 TABLETS BY MOUTH TODAY, THEN TAKE 1 TABLET DAILY FOR 4 DAYS DIRECTED active Not Available Not Available No t Available nicotine (polacrilex ) 2 mg gum Chew 1 piece of gum every 2 hours by oral route as needed for 30 days. 10/22 completed Not Available Not Available Not Available benzonatate 200 mg capsule Take 1 capsule 3 times a day by oral route for 30 days. 2022 active Not Available Not Available Not Avai lable prednisone 20 mg tablet TAKE 2 TABLETS BY MOUTH EVERY DAY FOR 5 DAYS 06/12 completed Not Available Not Available Not Available ciprofloxac in 250 mg tablet Take 1 tablet twice a day by oral route for 10 days. active Not Available Not Available No t Available Serevent Diskus 50 mcg/dose powder for inhalation Inhale 1 puff twice a day by inhalatio n route. 06/13 completed Not Available Not Available Not Available lorazepam 0.5 mg tablet TAKE ONE TABLET BY MOUTH ON THE DAY OF SURGERY NEEDED (OCTOBER 13). active Not Available Not Available No t Available benzonatate 100 mg capsule Take 1 capsule 3 times a day by oral route as needed for 10 days. active Not Available Not Available No t Available cephalexin 500 mg capsule active Not Available Not Available Not Available nitrofurant oin macrocrysta l 100 mg capsule Take 1 capsule every 6 hours by oral route as directed for 7 days. active Not Available Not Available No t Available lisinopril 5 mg tablet TAKE 1 TABLET BY MOUTH EVERY DAY IN THE EVENING active Not Available Not Available No t Available ergocalcife rol (vitamin D2) 1,250 mcg (50,000 unit) capsule TAKE 1 CAPSULE BY MOUTH EVERY WEEK active Not Available Not Available No t Available azelastine 137 mcg (0.1 %) nasal spray [place] 2 sprays twice a day by intranasa l route as directed for 30 days. 06/12 completed Not Available Not Available Not Available albuterol sulfate HFA 90 mcg/actuati on aerosol inhaler Inhale 2 puffs every 4 hours by inhalatio n route as needed. active Not Available Not Available No t Available amoxicillin 875 mg-potassiu m clavulanate 125 mg tablet TAKE 1 TABLET BY MOUTH EVERY 12 HOURS DIRECTED FOR 7 DAYS active Not Available Not Available No t Available nicotine (polacrilex ) 2 mg buccal lozenge DISSOLVE 1 LOZENGE IN CHEEK EVERY 2 HOURS NEEDED 10/22 completed Not Available Not Available Not Available Mucinex 1,200 mg tablet, extended release Take 1 tablet twice a day by oral route as directed for 30 days. 2022 active Not Available Not Available Not Avai lable Spiriva Respimat 2.5 mcg/actuati on solution for inhalation Inhale by inhalatio n route for 90 days. 09/10 completed Not Available Not Available Not Available Incruse Ellipta 62.5 mcg/actuati on powder for inhalation Inhale 1 puff every day by inhalatio n route. 10/22 completed Not Available Not Available Not Available Spiriva Respimat 1.25 mcg/actuati on solution for inhalation Inhale 2 puffs every day by inhalatio n route in the morning. 09/10 completed Not Available Not Available Not Available nicotine (polacrilex ) 2 mg buccal mini lozenge Place 1 lozenge every 2 hours by buccal route as needed for 30 days. 10/22 completed Not Available Not Available Not Available Trelegy Ellipta 100 mcg-62.5 mcg-25 mcg powder for inhalation Inhale 1 puff every day by inhalatio n route as directed for 30 days. 06/12 completed Not Available Not Available Not Available ID NOW COVID-19 Test Kit TEST DIRECTED TODAY 12/10 completed Not Available Not Available Not Available Breztri Aerosphere 160 mcg-9mcg-4. 8mcg/actuat ion HFA aerosol inhaler active Not Available Not Available Not Available BinaxNOW COVID-19 Ag Self Test kit TEST DIRECTED TODAY 12/10 completed Not Available Not Available Not Available Vitals Date Recorded Body height Body mass index (BMI) Body weight Body temperature Heart rate Oxygen saturation Oxygen saturation in Arterial blood by Pulse oximetry Systolic blood pressure Diastolic blood pressure Provider Name and Address Organization Details Last Updated DateTime 3 182.88 cm 17.1 kg/m2 86203.6 4 g 96 [degF] 80 /min 95 % 95 % 128 mm[Hg] 72 mm[Hg] Kaylyn Lomax RN [place] [employer] 3 14:23:38 Date Recorded Body height Body temperature Body mass index (BMI) Body weight Oxygen saturation Oxygen saturation in Arterial blood by Pulse oximetry Heart rate Systolic blood pressure Diastolic blood pressure Provider Name and Address Organization Details Last Updated DateTime 3 182.88 cm 96.8 [degF] 16.5 kg/m2 41421.2 7 g 98 % 98 % 80 /min 130 mm[Hg] 70 mm[Hg] Luisa Dougherty RN [facility] [employer] [facility] 3 11:36:46 Date Recorded Body height Body mass index (BMI) Body weight Body temperature Heart rate Oxygen saturation Oxygen saturation in Arterial blood by Pulse oximetry Systolic blood pressure Diastolic blood pressure Provider Name and Address Organization Details Last Updated DateTime 3 182.88 cm 16.3 kg/m2 75002.0 8 g 95.3 [degF] 67 /min 96 % 96 % 94 mm[Hg] 60 mm[Hg] Kaylyn Lomax RN [facility] [employer] 3 11:50:11 Date Recorded Body height Body mass index (BMI) Body weight Body temperature Heart rate Oxygen saturation Oxygen saturation in Arterial blood by Pulse oximetry Systolic blood pressure Diastolic blood pressure Provider Name and Address Organization Details Last Updated DateTime 3 182.88 cm 16 kg/m2 35582.9 g 97.9 [degF] 72 /min 99 % 99 % 108 mm[Hg] 70 mm[Hg] Sarah Ames [facility] [employer] 3 14:17:57 Date Recorded Body height Body mass index (BMI) Body weight Body temperature Oxygen saturation Oxygen saturation in Arterial blood by Pulse oximetry Heart rate Systolic blood pressure Diastolic blood pressure Provider Name and Address Organization Details Last Updated DateTime 3 182.88 cm 15.2 kg/m2 79444.3 5 g 97.02 [degF] 93 % 93 % 92 /min 172 mm[Hg] 90 mm[Hg] Katlyn Mahoney LPN [employer] [facility] [employer] 3 09:14:09 Social History Question Answer Notes LastModified by Organization Details LastModified Time Tobacco Smoking Status Current Every Day Smoker Not Available [employer] 04/23/2022 00:57:58 Do You Have An Advance Directive? No MIGRATION.[id number] Information not available 04/23/2022 What Is Your Level Of Alcohol Consumption? None [id number] Information not available 04/23/2022 Do You Wear A Helmet When Biking? No [id number] Information not available 04/23/2022 Are You Blind Or Do You Have Difficulty Seeing? Yes MIGRATION.0301 [id number] Information not available 04/23/2022 What Is Your Level Of Caffeine Consumption? Heavy MIGRATION.0301 [id number] Information not available 04/23/2022 In The 14 Days Before Symptom Onset, Have You Had Close Contact With A Laboratory-conf irmed COVID-19 While That Case Was Ill? No MIGRATION.030 [id number] Information not available 04/23/2022 In The 14 Days Before Symptom Onset, Have You Had Close Contact With A Person Who Is Under Investigation For COVID-19 While That Person Was Ill? No MIGRATION.0301 [id number] Information not available 04/23/2022 Are You Deaf Or Do You Have Serious Difficulty Hearing? Yes MIGRATION.030 [id number] Information not available 04/23/2022 What Type Of Diet Are You Following? REGULAR MIGRATION.030 252561 Information not available 04/23/2022 What Is The Highest Grade Or Level Of School You Have Completed Or The Highest Degree You Have Received? US35062-2 MIGRATION.030 [id number] Information not available 04/23/2022 Have There Been Any Changes To Your Family Or Social Situation? No MIGRATION.0301 [id number] Information not available 04/23/2022 What Is The Fluoride Status Of Your Home? Unknown MIGRATION.030 [id number] Information not available 04/23/2022 Are There Any Guns Present In Your Home? No MIGRATION.0301 337909 Information not available 04/23/2022 Do You Use Insect Repellent Routinely? Yes MIGRATION.030 093906 Information not available 04/23/2022 Where Do You Live? [facility] MIGRATION.030 638405 Information not available 04/23/2022 Advance Directive- Providers Has Reviewed Directive And Consents To Follow Them (insert Provider Name With Any Objectives In Notes Field) No MIGRATION.0301 [id number] Information not available 04/23/2022 Do You Have A Medical Power Of Service Desk Analyst? No MIGRATION.0301 500312 Information not available 04/23/2022 What Was The Date Of Your Most Recent Tobacco Screening? 12/10/2021 MIGRATION.0301 [id number] Information not available 04/23/2022 Do You Have Any Pets? Yes MIGRATION.0301 [id number] Information not available 04/23/2022 What Is Your Relationship Status? MIGRATION.0301 [id number] Information not available 04/23/2022 Do You Use Your Seat Belt Or Car Seat Routinely? Yes MIGRATION.0301 [id number] Information not available 04/23/2022 Do You Have Smoke And Carbon Monoxide Detectors In Your Home? Yes MIGRATION.0301 [id number] Information not available 04/23/2022 At What Age Did You Start Smoking Tobacco? 19 MIGRATION.0301 589641 Information not available 04/23/2022 Are You Passively Exposed To Smoke? Yes MIGRATION.0301 [id number] Information not available 04/23/2022 Are There Any Smokers In Your House? Yes MIGRATION.0301 375444 Information not available 04/23/2022 How Much Tobacco Do You Smoke? 1 PPD 20-25 Cigarettes Per Day MIGRATION.0301 [id number] Information not available 04/23/2022 Do You Participate In Social [employer]? No MIGRATION.0301 138430 Information not available 04/23/2022 Do You Feel Stressed (tense, Restless, Nervous, Or Anxious, Or Unable To Sleep At Night)? [id number] MIGRATION.0301 [id number] Information not available 04/23/2022 Do You Use Any Illicit Or Recreational Drugs? No MIGRATION.0301 633484 Information not available 04/23/2022 Do You Use Sunscreen Routinely? No MIGRATION.0301 232528 Information not available 04/23/2022 How Many Years Have You Smoked Tobacco? 55 MIGRATION.0301 275039 Information not available 04/23/2022 Have You Recently Traveled Abroad? No MIGRATION.0301 314279 Information not available 04/23/2022 Are You Currently In School? No MIGRATION.0301 723096 Information not available 04/23/2022 Do You Have Any Dietary Restrictions? No MIGRATION.0301 430084 Information not available 04/23/2022 Do You Or Have You Ever Used Any Other Forms Of Tobacco Or Nicotine? No MIGRATION.0301 405739 Information not available 04/23/2022 Sex: Unknown Functional Status Question Answer Note LastModified by Organizat ion Details LastModified Time Do you have difficulty walking or climbing stairs? Yes sob MIGRATION.[id number] 026 Information not available 04/23/2022 Do you have transportation difficulties? No MIGRATION.7745119 026 Information not available 04/23/2022 Are you able to walk? YESWOREST MIGRATION.[id number] 026 Information not available 04/23/2022 Do you have difficulty doing errands alone? No MIGRATION.[id number] 026 Information not available 04/23/2022 Are you able to care for yourself? No MIGRATION.[id number] 026 Information not available 04/23/2022 Do you have difficulty dressing or bathing? No MIGRATION.[id number] 026 Information not available 04/23/2022 What is your exercise level? Occasional MIGRATION.[id number] 026 Information not available 04/23/2022 Mental Status Question Answer Note LastModified by Organizat ion Details LastModified Time Do you have difficulty concentrating, remembering or making decisions? Yes MIGRATION.[id number] 6 Information not available 04/23/2022 Family History Nothing Reported. Medical History Condition Response BLINDNESS N RHEUMATIC FEVER N KIDNEY STONES N BLADDER PROBLEMS N MRSA N OTHER # 1 N POLIO N LUNG DISEASE/DISORDER N HISTORY OF DRUG ABUSE N RADIATION / CHEMOTHERAPY N COPD Y Other # 2 N BLOOD DISEASES N SURGERY N EAR OR HEARING PROBLEMS N MUMPS N SHINGLES N BOWEL PROBLEMS N FEMALE PROBLEMS / INFECTIONS N DEPRESSION (INCLUDING POST ) N STROKE/TIA N THYROID DISEASE N ULCERS N BENIGN PROSTATIC HYPERPLASIA N MEASLES N CERVICALGIA N HYPOTENSION N TB SKIN TEST N MYOCARDIAL INFARCTION N PARAPELGIA N OBESITY N GERD/NAUSEA N ANEURYSM N URINARY/BLADDER/KIDNEY PROBLEMS N CORONARY ARTERY DISEASE (CAD) N MENIERE'S DISEASE N ADDICTION CONCERNS N ENDOMETRIOSIS N USE OF BLOOD THINNERS N SKIN PROBLEMS N EMPHYSEMA N GASTROINTESTINAL DISORDER N MUSCLE,JOINT OR BONE PROBLEMS N GASTROINTESTINAL BLEEDING N BLOOD CLOTS N ASTHMA N CATARACTS N ERECTILE DYSFUNCTION N GI PROBLEMS N CHF N Low Testosterone N NEUROPATHY N INFERTILITY N AIDS/HIV N FRACTURES N CHEMOTHERAPY / RADIATION N VISION/EYE PROBLEMS N LIVER DISEASE N MALE HYPOGONADISM N HYPERTENSION Y TOURETTE'S N ANXIETY DISORDER N BLOOD TRANSFUSION N ANEMIA/BLOOD DISORDER N CHRONIC EAR INFECTIONS N BRONCHITIS N TUBERCULOSIS N GLAUCOMA N FOOT PROBLEM N DIVERTICULITIS N CHICKENPOX N SLEEP APNEA N ALLERGIES/HAYFEVER N INFECTIOUS DISEASE N HEART ARRHYTHMIA N PROSTATE N INSOMNIA N HIGH CHOLESTEROL / HYPERLIPIDEMIA N HYPERTHYROIDISM N EYE PROBLEMS N EATING DISORDER N EDEMA N CHRONIC PAIN SYNDROME N CONSTIPATION N CAROTID BLOCKAGE N BACK / NECK PROBLEMS N HAVE YOU BEEN HOSPITALIZED OR SEEN IN [facility] IN THE PAST YEAR ? N ATHEROSCLEROSIS N BREAST PROBLEMS N DIALYSIS N ECZEMA N FIBROMYALGIA N OSTEOPOROSIS N ARTHRITIS N NO SIGNIFICANT PAST MEDICAL HISTORY N APPENDICITIS N DIABETES, TYPE N BAD TEETH N HEARTBURN / REFLUX N ADD/ADHD N AUTISM SPECTRUM DISORDER (ASD) N HEPATITIS / LIVER DISEASE N PULMONARY DISEASE N GOUT N SLEEP DISORDER N ALZHEIMER'S DISEASE N PAIN N HERPES N DEMENTIA N HEADACHES/MIGRAINES N SEIZURES/EPILEPSY N VASCULAR DISEASE N PACEMAKER N DIZZINESS N HEART DISEASE/HEART PROBLEMS N KIDNEY DISEASE N DEVELOPMENTAL OR BEHAVIORAL DISORDERS N MULTIPLE SCLEROSIS N SCARLET FEVER N MENTAL DISORDER/ILLNESS N CARDIAC ARRHYTHMIA N CANCER: SPECIFY N PNEUMONIA N ATRIAL FIBRILLATION N Gall Stones N PULMONARY EMBOLISM N AUTOIMMUNE DISEASE N Immunizations Vaccine Type Date Status Note Provider Nam e and Address Organization Details Recorded Time Pneumococcal conjugate PCV 13 2 completed Not Available [employer] 04/23/2022 01:00:59 pneumococcal polysaccharide PPV23 3 completed Clyde Ma, LAPPING MACHINE TENDER [address] [facility], [facility] [address], [place], [address], [email or web address] 06/12/2022 18:31:07 Influenza, high-dose, quadrivalent, PF 3 completed Leidy Little, [facility] null, [email or web address] 01/27/2023 10:55:18 Past Encounters Encounter ID Performer Location Encounter Start Date Encounter Closed Date Diagnosis/Indication Diagnosis SNOMED-CT Code Diagnosis ICD10 Code Diagnosis Note [id number] [facility] [address] [place] [address] 05/15/2021 00:00:00 05/15/2021 14:09:08 [id number] [facility] [address] [place] [address] 05/30/2021 00:00:00 05/30/2021 20:42:30 [id number] [facility] [address] [place] [address] 06/13/2021 00:00:00 06/13/2021 14:16:23 [id number] [facility] [address] [place] [address] 06/26/2021 00:00:00 06/26/2021 22:20:54 [id number] [facility] [place] [address] [place] [address] 07/23/2021 00:00:00 07/23/2021 14:41:03 [id number] [facility] [place] [address] [place] [address] 09/10/2021 00:00:00 09/10/2021 14:15:15 [id number] [facility] [place] [address] [facility] [address] [place] [address] 09/19/2021 00:00:00 09/19/2021 16:59:27 [id number] [facility] [place] [address] [facility] [address] [place] [address] 10/03/2021 00:00:00 10/03/2021 13:57:41 [id number] [facility] [place] [address] [place] [address] 10/22/2021 00:00:00 10/22/2021 12:07:42 [id number] [facility] [place] [address] [place] [address] 12/10/2021 00:00:00 12/10/2021 13:49:18 [id number] ALEX Golden [facility] [address] [facility] [address] [facility] [place] [address] 05/21/2022 14:13:59 05/21/2022 15:13:37 Pulmonary emphysema 82072218 J43.9 Chronic.Im proving with addition of daily controller inhaler. Pt unable to afford controller inhalers d/t high-deduc tible. Gave samples of Breztri today. Reviewed instructio ns for use multiple times. Encouraged pt to stop smoking. Keep scheduled appt with Alona Stoll on 05/[address] scan Hearing loss 11769553 H9 1.93 New problem (left > right)Pt declines referral to audiology or ENT at this time. Bilateral cataracts 9572 2003 H25.013 ChronicWil l refer to [facility] per patient request. Acute sinusitis 80955571 J01.90 Resolved [id number] Alona Stoll, LAPPING MACHINE TENDER-[facility] [place] Pulmon[facility] [place] [address] [place] [address] 05/22/2022 11:29:27 05/22/2022 15:19:57 Thick sputum 892358767 R09.3 Start Mucinex and flutter valve Chronic cough 88798882 R 05.3 Improved with BreztriQua ntiferon GOLD negativeEo sinophils normalIGGs normalBNP normalBenz onatate PRN Moderate c hronic obstructive pulmonary disease 439811899 J44.9 CAT 22PFT 08/2021 with ratio 57% and FEV1 63+ improvemen t post bronchodil atorTLC 124DLCO 35%Alpha1 MM normalBrez tri two puffs BID - likely will need to PA, statement of medical necessityH e is aware to use this with aerochambe rDiscussed use and techniqueR inse and spit after useRTC in 6 months, PRN for concerns Nicotine dependence 5629 4008 Z87.891 Smoking cessation counseling and techniques reviewed at length. Literature reviewed.A void triggers, support groups.Dis traction techniques Greater than 3 but less than 10 minutes spent discussing cessation. Declines NRT.Discus sed Rx options if needed in the future.CT as above, plans to repeat in one year 04/2023 Multiple n odules of lung 722823765 R91.8 CT chest 04/2022 with RLL nodules resolvedNo new nodule or mass [id number] ALEX Golden [facility] [place] [address] [facility] [address] [place] [address] 06/12/2022 11:43:57 06/12/2022 13:00:35 Pulmonary emphysema 13869122 J43.9 Pulmonary Emphysema/ COPD-Chron ic.Some improvemen t with addition of daily controller inhaler. Control could be better, suspect pt isn't entirely compliant with treatment regimen. Still smoking at least 1ppd. Encouraged pt to stop smoking. Discussed progressiv e nature of COPD at length. Encouraged proper breathing techniques . Advised compliance with supplement al O2, nebulizer and inhaled medication s as directed. Encouraged patient to avoid cigarette smoke, allergens, and environmen martniez pollutants . Advised HVAC filters be changed seasonally as well. Will check labs and refer for cardio-pum onary rehab. Continue to f/u with Farooq Stoll as scheduled. Reviewed pulmonary note from Farooq Stoll (05/22/22). Breztri 160mcg-9mc g-4.8mcg HFA Hearing loss 72415338 H9 1.93 ChronicBil at (left > right)Pt still declines ENT referral Bilateral cataracts 9572 2003 H25.013 ChronicRef erred to [facility] . Administra tion of pneumococcal vaccine 35795513 Z23 Screening for cancer 158 72562 Z12.5 Chronic ulcer of skin 19 304158 L98.499 ChronicNon -healing wound right inner thigh.very concerned that this may be a malignancy Referred to derm for further evaluation and tx. Liver enzy mes level above reference range 140332230 R74.01 Unknown statusWill repeat CMP Muscle weakness 81659202 M62.81 ChronicSx are likely secondary to known copd, cardiac dysfunctio n, anemia, and weight loss.Recom mend cardio-pul monary therapy to improve breathing so pt is able to do some exercise. Chronic ob structive pulmonary disease 00955060 J44.9 I25.2 Chronic, stableCont rol could be better, suspect pt isn't entirely compliant with treatment regimen. Discussed progressiv e nature of COPD at length. Encouraged proper breathing techniques . Advised compliance with supplement al O2, nebulizer and inhaled medication s as directed. Encouraged patient to avoid cigarette smoke, allergens, and environmen martinez pollutants . Advised HVAC filters be changed seasonally as well.Will check labs and refer for cardio-pum onary rehabConti nue to f/u with Farooq Stoll as scheduled. Reviewed pulmonary note from Farooq Stoll (05/22/22): STATEMEN T OF MEDICAL NECESSITY* *Mr Moran has tried and failed multiple inhalers. He has done the best on Breztri 2 puffs BIDTo prevent exacerbati on, hospitaliz ation and he should remain on this moderate chronic obstructiv e pulmonary diseaseCAT 22, PFT 08/2021 with ratio 57% and FEV1 63, + improvemen t post bronchodil ator, TLC 124DLCO 35%, Alpha1 MM normal, Breztri two puffs BID - likely will need to PA, statement of medical necessity. He is aware to use this with blayne alanis. Discussed use and technique. Rinse and spit after use. RTC in 6 months, PRN for concerns. Renew Breztri Aerosphere 160 mcg-9mcg-4 .8mcg/actu ation HFA aerosol inhalermul tiple nodules of lungCT chest 04/2022 with RLL nodules resolved. No new nodule or mass. thick sputum. Start Mucinex and flutter valve. Start Mucinex 1,200 mg tablet, extended release 1 tablet 2 times a day as directed for 30 days, Order flutter valve mucus removal devicechro franca coughImpro carlton with Breztri. Quantifero n GOLD negative. Eosinophil s normal. IGGs normal. BNP normalBenz onatate PRN, Start benzonatat e 200 mg capsule 1 capsule 3 times a day for 30 daysnicoti ne dependence Smoking cessation counseling and techniques reviewed at length. Literatur e reviewed. Avoid triggers, support groups. Distractio n techniques . Greater than 3 but less than 10 minutes spent discussing cessation. Declines NRT. Discussed Rx options if needed in the future. CT as above, plans to repeat in one year 04/2023 Anemia 536340880 D64.9 Unknown statusWill check labs to evaluate anemias. Likely also contributi ng to pts weakness, sob. Memory impairment 801289 006 R41.3 Recurrenta ge-related changes vs Alzeheimer s vs Dementia vs small vessel disease r/t smokingSco res on MMSE today (06/12/22), improvemen t from last time.Ok to resume NeurivaPt declines neuro referral and rx at this time.Discu ssed ongoing smoking may also contribute to narrowing of blood vessels in the brain Urinary symptoms 1410609 08 R39.9 New problemDif ferentials Include-BP H, Prostatiti s, UTI, Urethritis , Cystitis, Prostate Cancer.Sudhakar l check PSA and UADiscusse d with pt that sx may also be medication related. Breztri contains glycopyrro late, which is an anti-choli nergic. Adult [facility] examination 920824188 Z00.01 Screening for disorder 348429766 Z13.9 [id number] Alona Stoll, LAPPING MACHINE TENDER-[facility] Pulmonolo gy [place] [address] [place] [address] 11/23/2022 14:06:58 11/23/2022 15:08:49 Moderate chronic obstructive pulmonary disease 058414280 J44.9 CAT 21PFT 08/2021 with ratio 57% and FEV1 63+ improvemen t post bronchodil atorTLC 124DLCO 35%Alpha1 MM normalBrez tri two puffs BIDHe is aware to use this with aerochambe rDiscussed use and techniqueR inse and spit after useRTC in 6 months, PRN for concerns Multiple n odules of lung 165990402 R91.8 CT chest 04/2022 with RLL nodules resolvedNo new nodule or mass Thick sputum 266532470 R 09.3 Mucinex and flutter valve Chronic cough 06386484 R 05.3 Improved with BreztriQua ntiferon GOLD negativeEo sinophils normalIGGs normalBNP normalBenz onatate PRN Nicotine dependence 5629 4008 Z87.891 Smoking cessation counseling and techniques reviewed at length. Literature reviewed.A void triggers, support groups.Dis traction techniques Greater than 3 but less than 10 minutes spent discussing cessation. Declines NRT.Discus sed Rx options if needed in the future.CT as above, plans to repeat in one year 04/2023 Dyspnea on exertion 6084 5006 R06.09 Multifacto ralcontinu e exercise [id number] ALEX Rodriguez-C [facility] Primary Care [facility] [address] [facility] [place] [address] 01/27/2023 09:00:11 01/27/2023 11:27:53 Chronic obstructive pulmonary disease 52578917 J44.9 -already being followed by pulm, next f/u is in April-Afte r that he plans to f'u with Alona Rocael-u ses breztri, usually works well for him, but recently had instance where he woke up and couldn't breathe without using his albuterol inhaler-en couraged to continue using breztri as prescribed until seeing pulm Acute sinusitis 75604196 J01.90 -dealing with symptoms for about 2 weeks-uses zyrtec prn, but stopped d/t worries of med not working well in the future-he did not try any other allergy med-has tried coricidin with some relief-not es some facial tenderness -has been around multiple cases of RSV recently, will test through [facility]-wi ll treat with zpack-enco uraged to increase fluid intake, daily antihistam ine- Administra tion of influenza vaccine 77346189 Z23 Dysuria 97494131 R30.0 Health Concerns Section Related Observation LastModified by Organization Detai ls LastModified Time None Recorded Concern Status LastModified by Organization Details LastModified Time None Recorded Advance Directives Directive N: Payers Encounter Date Sequence Insurance Name Policy Number Policy Underwood Covered Member ID Underwood Member ID Guarantor Name 05/21/2022 1 [place] Trey Moran [id number] Trey Moran 05/21/2022 2 [employer] (MEDICARE SUPPLEMENT) Trey Moran [id number] Trey Moran 05/22/2022 1 [place] Moran [id number] Trey Moran 05/22/2022 2 [employer] (MEDICARE SUPPLEMENT) Trey Moran [id number] Trey Moran 06/12/2022 1 [place] T[place] Moran [id number] Trey Vee Dean 06/12/2022 2 [employer] (MEDICARE SUPPLEMENT) Trey Moran [id number] Trey Moran 11/23/2022 1 [place] T[place] Moran [id number] Trey Moran 11/23/2022 2 [employer] (MEDICARE SUPPLEMENT) Trey Moran [id number] Trey Moran 01/27/2023 1 [place] Trey Moran [id number] Trey Moran 01/27/2023 2 [employer] (MEDICARE SUPPLEMENT) Trey Moran [id number] Trey Moran Notes Date Note Type Note Provider Name and Address Organization Details Recorded Time 05/21/2022 text/html 1. Pt in office with for f/u appt. Pt states that his ekg was abnormal so we sent him to cardiology and they ordered a sonogram and found a ventricle that isn't pumping well. He had a chemical stress test and was started on new bp medication.2. Pt states that he has an appt with Alona tomorrow to review his CT scan. Pt states he has been getting Breztri samples for his pulmonary emphysema.3. states pt had a sinus infection starting on 04/29 after wearing an old mask in the car. States he started sneezing and coughing and didn't get better until he got abx.4. 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 Pt states he also has some trouble hearing out of his right ear. Pt states he doesn't want hearing aids. states he needs to have his ears checked for extra wax. ALEX Golden [address] [facility], [address], [place], [address], [email or web address] 05/21/2022 18:44:58 05/22/2022 text/html Mr Moran present s today to follow up on COPD/emphysema, cough, dyspnea, nicotine dependence, recent sars-CoV-2 infectionCompliant with Breztri 2 puffs BIDHas used Albuterol 3x since last OV, he tries not to use this but when he does he has good clinical benefitCough is dailyMucous is very thick, tells me he has a difficult time getting it up.He has been using his aerochamberHe has started working in the yard, increase in runny nose and sneezing while around the [place]avenlinkRare wheezingHe denies chest pain and hemoptysisNo unintentional weight lossContinues to smoke 1 to 1 1/2 PPDDenies respiratory symptoms that wake him at night.Can dress slowly without shortness of breath, this is unchangedDenies GERD symptomsNo exacerbations since he was last in the office Alona Stoll, ALEX-[facility] [address] [facility], [place], [address], [email or web address] 05/22/2022 13:36:15 06/12/2022 text/html 06/12/22: 1. Pt i n office with for MWE2. Pt reports he went to a few days before easter with c/o urinary sx. Pt states he was dx with possible UTI, but they sent his UA out for culture, but they didn't get a result back yet.3. Pt states he has been having dribbles, stop/start in stream, and sometimes normal stream. States he is concerned sx might be d/t prostate.4. states pt has a wound on right inner thigh for years. Pt states he calls the wound itchy . Pt states that it's about the size of a quarter.5. Pts states he is having foggy days . Pt states sometimes he feels like he can't walk straight. Pt states he sometimes is able to remember everything and other days he can't remember things 10 minutes later.6. Pt states is concerned with him having stamina/energy. Pt states he feels like he has issues when carrying heavy things, especially when going up the stairs. states he is barely able to walk from the house to the end of their yeard w/o being out of breath. Pt admits he still smokes a ppd, states he is smoking more than that. 05/21/22: 1. Pt in office with for f/u appt. Pt states that his ekg was abnormal so we sent him to cardiology and they ordered a sonogram and found a ventricle that isn't pumping well. He had a chemical stress test and was started on new bp medication.2. Pt states that he has an appt with Alona tomorrow to review his CT scan. Pt states he has been getting Breztri samples for his pulmonary emphysema.3. states pt had a sinus infection starting on 04/29 after wearing an old mask in the car. States he started sneezing and coughing and didn't get better until he got abx.4. 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 Pt states he also has some trouble hearing out of his right ear. Pt states he doesn't want hearing aids. states he needs to have his ears checked for extra wax. Clyde Ma, LAPPING MACHINE TENDER [address] [facility], [address], [place], [address], [employer] 06/12/2022 19:13:20 11/23/2022 text/html Mr Moran present s today to follow up on COPD/emphysema, cough, dyspnea, nicotine dependence, sars-CoV-2 infectionCompliant with Breztri 2 puffs BIDHas been approved for the patient assistance program and is geting this for free now.Has used Albuterol 4x since last OV,Cough is daily, worse in the morningsMucous is very thickHe has been using his aerochamberRare wheezingHe denies chest pain and hemoptysisNo unintentional weight loss, he has gained 3 pounds per the scale todayContinues to smoke 1 to 1 1/2 PPDDenies respiratory symptoms that wake him at night.Can dress slowly without shortness of breath, this is unchangedDenies GERD symptomsNo exacerbations since he was last in the officeHas poor stamina but has started walking for 20 minutes, currently at 2-3x weekly KALYAN BledsoeBC [address] [facility], [address] [place] [address], [place], [address], [employer] 11/23/2022 22:08:28 01/27/2023 text/html Pt is here to di scuss issues breathing Garret Russo, KALYANC [address] [facility], [address] [address], [place], [address], [employer] 01/27/2023 10:34:38
--- OUTSIDE RECORDS SUMMARY | 2024-05-31 15:13 | XMS_ITS | Clinical Summary ---
Author Organization [facility] [place] [address] Address [address] [place] [address] Care Team Providers Care Crew Person Name Role Phone No, Physician Primary Care Provider [phone] Allergies Active Allergy Reactions Criticality Noted Date Comments Sulfa (Sulfonamide Antibiotics) Swelling Reaction: swelling, Medications FOLIC ACID/MULTIVIT-MIN/BEVERLEY TEIN (CENTRUM SILVER ORAL) Take by mouth. Activ e albuterol HFA (PROVENTIL HFA,VENTOLIN HFA,PROAIR HFA) 90 mcg/actuation inhaler as needed Active aspirin 81 mg enteric coated tablet Take 1 tablet (81 mg total) by mouth daily Active cyanocobalamin (vitamin B-12) 1,000 mcg tabletIndications:Pr evention of Vitamin B12 Deficiency Take 1 tablet (1,000 mcg total) by mouth daily Active benzonatate (TESSALON) 200 mg capsule Take 1 capsule (200 mg total) by mouth 3 (three) times a day Active budesonide-glycopyr- formoterol (Breztri Aerosphere) 160-9-4.8 mcg/actuation inhaler Inhale 2 puffs 2 (two) times a day Rinse and spit after use - use with aerochamber 1 each 05/25/19 24 Active B6/folic/B12/coffee/ phosphatid (NEURIVA PLUS BRAIN PERFORMANCE ORAL) Take 1 tablet by mouth daily Active budesonide-glycopyr- formoterol (Breztri Aerosphere) 160-9-4.8 mcg/actuation inhaler Inhale 2 puffs 2 (two) times a day Rinse and spit after use - use with aerochamber 1 each 11 12/17/19 24 Active lisinopriL (PRINIVIL,ZESTRIL) 5 mg tabletIndications:Le ft ventricular systolic dysfunction TAKE 1 TABLET BY MOUTH EVERY DAY IN THE EVENING 90 tablet 2 01/25/20 24 Active atorvastatin (LIPITOR) 40 mg tabletIndications:Co ronary arteriosclerosis in [place] artery TAKE 1 TABLET BY MOUTH EVERY DAY 90 tablet 2 03/02/19 25 Active cetirizine (ZyrTEC) 5 mg tablet Take 1 tablet (5 mg total) by mouth daily Active Active Problems Problem Noted Date Diagnosed Date Pulmonary hypertension 05/18/2024 Assessment & Plan (05/18/2024 3:27 PM CDT): His echocardiogram in 2021 demonstrated in estimated are VSP of 44 This is likely secondary to group 1 and group 2 disease I will request a recent echocardiogram. Will assess for hypoxia with a walk test as above There is no indication for pulmonary vasodilators Pneumonia 11/08/2023 Assessment & Plan (11/08/2023 1:01 PM CDT): Treated as an outpatient with resolution of symptoms Check CT chest to ensure resolution and exclude underlying mass/nodule Cigarette nicotine dependence without complicati on 11/08/2023 Assessment & Plan (05/18/2024 3:26 PM CDT): - Smoking cessation counseling and techniques reviewed at length - Avoid triggers and use distraction techniques - Participate in support groups - Information given regarding [place] Tobacco Quit line: 5-774-GSAQ-YES for free services - 6 minutes spent discussing cessation He is uninterested in nicotine replacement therapy today He is due for annual cancer screening May of 2024 Assessment & Plan (11/08/2023 1:00 PM CDT): - Smoking cessation counseling and techniques reviewed at length - Avoid triggers and use distraction techniques - Participate in support groups - Information given regarding [place] Tobacco Quit line: 3-709-CRAS-YES for free services - 4 minutes spent discussing cessation Pulmonary emphysema 11/14/2021 Assessment & Plan (05/18/2024 3:25 PM CDT): Continue Breztri 2 puffs BID This is covered by the AZ&Me program, which will need to be renewed annually. Albuterol as needed only, we have discussed indications for use Continue PEP device frequently to assist with mucous clearance. We have discussed vaccinations I do not have a CBC to assess eosinophils We may need an alpha-1 swab, I will review his old records We have discussed signs and symptoms that would require earlier evaluation or change to his plan of care I will recheck a 6 minute walk test to assess for exertional hypoxia Assessment & Plan (11/08/2023 1:02 PM CDT): Continue Breztri 2 puffs BID This is covered by the AZ&Me program, which will need to be renewed annually. Albuterol as needed only, we have discussed indications for use Continue PEP device frequently to assist with mucous clearance. We have discussed vaccinations Dyslipidemia 07/23/2021 VILLALOBOS (dyspnea on exertion) 10/13/2016 Assessment & Plan (10/13/2016 7:16 PM CDT): Chronic VILLALOBOS most likely related to COPD and smoking, though this may be an anginal equivalent. We have not re-evaluate cardiac status for while and it is reasonable to do a Lexiscan stress test for further evaluation Tiredness 10/13/2016 Assessment & Plan (10/13/2016 7:19 PM CDT): Patient complains of chronic sleepiness and tiredness. Sounds like he is up a lot at night because his is up a lot at night and I suspect his fatigue is related to poor sleep efficiency. Counseled regarding sleep hygiene; recommended he discuss this with his so she can watch TV in another room etc Patient's suggested I talked to his about this but I think this is best handled between the 2 of them. I did provide some literature regarding sleep hygiene. Essential hypertension 10/21/2015 Overview (05/29/2016): Essential hypertension Presence of stent in coronary artery 10/21/2015 Overview (05/29/2016): History of coronary artery stent placement Noncompliance with treatment 10/21/2015 Overview (05/29/2016): Noncompliance Assessment & Plan (10/13/2016 7:22 PM CDT): Reluctant to comply with medical therapy for CAD in the past but now is compliant with aspirin, statin, and SHERON-inhibitor. Old myocardial infarction 05/29/2014 Overview (05/29/2016): Old [place] (myocardial infarction) Post percutaneous transluminal coronary angiopla sty 09/05/2013 Overview (05/29/2016): STATUS-POST PTCA Coronary arteriosclerosis in [place] artery 07/08 Overview (05/29/2016): CRNRY ATHRSCL NATVE VSSL Assessment & Plan (10/13/2016 7:20 PM CDT): 2012: NSTEMI, BMS to OM1 Pure hypercholesterolemia 07/08/2013 Overview (05/29/2016): PURE HYPERCHOLESTEROLEM Assessment & Plan (10/13/2016 7:21 PM CDT): Lipids today: Total cholesterol 144, LDL 77, TG 194, HDL 29 Taking atorvastatin Current smoker 01/09/2013 Overview (05/27/2016): Smoker Assessment & Plan (10/13/2016 7:17 PM CDT): Patient is still trying to quit smoking and has tried multiple other smoking cessation methods as above. Has not yet tried Wellbutrin. Resolved Problems Problem Noted Date Diagnosed Date Resolved Date Hypercholesterolemia 10/21/2015 017 Overview (05/29/2016): Hypercholesterolemia Benign hypertension 07/08/2013 10/14/19 17 Overview (05/29/2016): BENIGN HYPERTENSION Hypertension 01/09/2013 10/13/2016 Overview (05/29/2016): HTN (hypertension) Encounters Date Type Department Care Team Description 05/17/2024 2:00 PM CDT Office Visit [facility] Pulmonary at [address] [place] [id number] Alona Stoll NP Centrilobular emphysema (HCC) (Primary Dx); Pulmonary hypertension (HCC); Cigarette nicotine dependence without complication 04/28/2024 11:00 AM SHAREPOINT DEVELOPER Office Visit [facility] Cardiology [address] [place] [address] Crystal Mccallum NP Coronary arteriosclerosis in [place] artery; Lipid screening; Left ventricular systolic dysfunction; Tobacco abuse; Pulmonary emphysema, unspecified emphysema type (HCC) from Last 3 Months Surgical History Surgery Date Site/Laterality Comments TONSILLECTOMY HERNIA REPAIR CARDIAC STENT PLACEMENT Medical History Medical History Date Comments Hx Other Medical Erectile Dysfun ction Osteoarthritis Osteoarthritis Coronary artery disease [place] (myocardial infarction) (HCC) Hypertension COPD (chronic obstructive pulmonary disease) (HC C) Urinary incontinence Hyperlipidemia Memory impairment Cigarette nicotine dependence without complicati on 11/08/2023 Family History Medical History Relation Name Comments Lung cancer Father Stroke Mother Relation Name Status Comments Father (Age 57) Mother (Age 54) Social History Tobacco Use Types Packs/Day Years Used Date Smoking Tobacco: Every Day Cigarettes 1 61.3 Started: 1962 Smokeless Tobacco: Never Tobacco Cessation:Ready to Q uit: Not Asked; Counseling Given: Not Answered Comments:Vaped for approx 6mths 05/17/24 states smoking 12-15 cigarettes per day Alcohol Use Standard Drinks/Week Comments No 0 (1 standard drink = 0.6 oz pur e alcohol) Sex and Gender Information Value Date Recorded Sex Assigned at Not on file Legal Sex Male 12:10 AM SHAREPOINT DEVELOPER Gender Identity Not on file Sexual Orientation Not on file Obstetrics History Last Filed Vital Signs Vital Sign Reading Time Taken Comments Blood Pressure 112/61 05/17/2024 2:09 PM CDT Pulse 64 05/17/2024 2:09 PM CDT Temperature 36 C (96.8 F) 05/17/2024 2:09 PM CDT Respiratory Rate 16 05/17/2024 2:09 PM CDT Oxygen Saturation 92% 05/17/2024 2:09 PM CDT Inhaled Oxygen Concentration - - Weight 51.7 kg (114 lb) 05/17/2024 2:09 PM CDT Height 182.9 cm (6') 05/17/2024 2:09 PM CDT Body Mass Index 15.46 05/17/2024 2:09 PM CDT Plan of Treatment Health Maintenance Due Date Last Done Comments Depression Screening 1946 Fall Risk Assessment 1945 Hepatitis C Screening 1945 DTaP/Tdap/Td Vaccine (1 - Tdap) 1957 Hepatitis B Screening 1964 Lung Cancer Screening 1996 Zoster Vaccine (1 of 2) 1996 Abdominal Aortic Aneurysm (A AA) Screen 2011 Well Visit 65+ 2011 Covid-19 Vaccine ( season) 2023 01/24/2021, 05/13/2020, 04/10/2020 Influenza Vaccine (Season Ended) 2024 Pneumococcal vaccine 65+ Completed 06/12/2022, 050 06/2021 Procedures Procedure Name Priority Date/Time Associated Diagnosis Comments POCT LIPID PANEL Routine 04/28/2024 11:0 9 AM SHAREPOINT DEVELOPER Lipid screening from Last 3 Months Results * POCT lipid panel (04/28/2024 11:09 AM SHAREPOINT DEVELOPER) Cholesterol, POC 127 mg/dL HDL, POC 45 mg/dL Triglycerides, POC 75 mg/dL LDL Cholesterol POC 66 mg/dL Chol/HDL Ratio, POC 1.5 Non-HDL Cholesterol, POC 81 mg/dL Cholesterol Total, POC 127 mg/dL Capillary blood 04/28/2024 1 1:09 AM SHAREPOINT DEVELOPER Crystal Mccallum NP POINT OF CARE TEST ORDERA BLES Final Result from Last 3 Months Insurance MEDICARE [employer] [place] [employer] [place] MEDICARE [facility] [place] MEDICARE Care Teams Crew Person Relationship Specialty Start Date End Date No, Physician PCP - General 04/28/24
--- OUTSIDE RECORDS SUMMARY | 2024-05-31 15:13 | XMS_ITS | Referral Summary ---
Author Organization [facility] [place] [address] [facility] [address] Address [address] [place] [address] Care Team Providers Care Hot Kettle Tender Name Role Phone No, Physician Primary Care Provider [phone] Encounters Date Type Department Care Team Description 05/17/2024 2:00 PM CDT Office Visit [facility] Pulmonary at [address] [place] [address] Alona Stoll NP Centrilobular emphysema (HCC) (Primary Dx); Pulmonary hypertension (HCC); Cigarette nicotine dependence without complication 04/28/2024 11:00 AM CITY PLANNING AIDE Office Visit [facility] Cardiology [address] [facility] [address] [place] [address] Crystal Mccallum NP Coronary arteriosclerosis in [place] artery; Lipid screening; Left ventricular systolic dysfunction; Tobacco abuse; Pulmonary emphysema, unspecified emphysema type (HCC) from Last 3 Months Allergies Active Allergy Reactions Criticality Noted Date [...] - use with aerochamber 1 each 11 05/25/19 24 Active B6/folic/B12/coffee/ phosphatid (NEURIVA PLUS [...] (LIPITOR) 40 mg tabletIndications:Co ronary arteriosclerosis in [place] artery TAKE 1 TABLET BY MOUTH EVERY [...] in support groups - Information given regarding [place] Tobacco Quit line: 3-498-UHVJ-YES for free services - 6 minutes spent discussing cessation He is uninterested in nicotine replacement therapy today He is due for annual cancer screening May of 2024 Assessment & Plan (11/08/2023 1:00 PM CDT): - Smoking cessation counseling and techniques reviewed at length - Avoid triggers and use distraction techniques - Participate in support groups - Information given regarding [place] Tobacco Quit line: 8-156-OGTQ-YES for free services - 4 minutes spent [...] Old myocardial infarction 05/29/2014 Overview (05/29/2016): Old [place] (myocardial infarction) Post percutaneous transluminal coronary angiopla sty 09/05/2013 Overview (05/29/2016): STATUS-POST PTCA Coronary arteriosclerosis in [place] artery 07/08 Overview (05/29/2016): CRNRY ATHRSCL NATVE [...] Hypertension 01/09/2013 10/13/2016 Overview (05/29/2016): HTN (hypertension) Social History Tobacco Use Types Packs/Day Years [...] on file Legal Sex Male 12:10 AM CITY PLANNING AIDE Gender Identity Not on file Sexual Orientation Not on file Last Filed Vital Signs Vital Sign Reading [...] 05/17/2024 2:09 PM CDT Plan of Treatment Not on file Procedures Procedure Name Priority Date/Time Associated Diagnosis Comments POCT LIPID PANEL Routine 04/28/2024 11:0 9 AM CITY PLANNING AIDE Lipid screening from Last 3 Months Results * POCT lipid panel (04/28/2024 11:09 AM CITY PLANNING AIDE) Cholesterol, POC 127 mg/dL HDL, POC 45 mg/dL Triglycerides, POC 75 mg/dL LDL Cholesterol POC 66 mg/dL Chol/HDL Ratio, POC 1.5 Non-HDL Cholesterol, POC 81 mg/dL Cholesterol Total, POC 127 mg/dL Capillary blood 04/28/2024 1 1:09 AM CITY PLANNING AIDE Crystal Mccallum NP POINT OF CARE TEST ORDERA BLES Final Result from Last 3 Months Insurance MEDICARE [facility] [place] [facility] [place] [id number] [employer]ICARE [employer] [place] Member Subscriber Plan / Payer (Ef fective 2022-Present) Name:Trey Moran Relation to Subscriber:Self Name:Trey Moran Payer ID:[id number] Group ID:Not on file Type:SourceDNA Address: [facility] [address] [place] [id number] [employer] [place] MEDICARE Care Teams Hot Kettle Tender Relationship Specialty Start Date End Date No, Physician PCP - General 04/28/24
--- NOTE | 2024-05-31 17:57 | WPDSIXMINUTE ---
Six Minute Walk Procedure Procedure Performed Pulmonary Stress Test (6 min walk) Six Minute Walk Six Minute Walk: This is a 6 minute walk test. The test was performed and interpreted in accordance with the 2014 ERS/ATS task force guidelines. Findings: The patient's resting room air oxygen saturation measured by pulse oximetry was 96%, the heart rate was 79 bpm, and the modified Marsha dyspnea score was 0.5. Patient ambulated for 244 meters and oxygen saturation remained 91 to 94%. At the end of the study the heart rate was 110 bpm and the modified Marsha dyspnea score was 2. The patient did not qualify for supplemental oxygen at rest or with ambulation. There are no prior studies for comparison.
--- NOTE | 2024-05-31 17:58 | WPDPFTINT ---
PFT Procedure Performed PFT Procedure Performed Spirometry with Pre/Post Bronchodilator Plethysmography (Lung Vol) Diffusing Cap (DLCO) Flow Vol Loop PFT Interpretation This is a pulmonary function test with spirometry, plethysmography and diffusing capacity. The test was performed and results interpreted in accordance with the 2019 and 2005 ATS/ERS Task Force guidelines respectively using the Global Lung Function Initiative-2012 reference equations. Patient demonstrated good effort and cooperation. Reproducibility criteria were met. The quality of the spirometry maneuver was Grade A. Findings: Spirometry: There is decreased maximal expiratory airflow at all lung volumes with concave expiratory flow tracing. The contour the inspiratory flow tracing is normal. The FVC is 3.88 L, 91% predicted. The FEV1 is 1.79 L, 57% predicted. The FEV1: FVC ratio is 46%. Plethysmography: The total lung capacity is 8.85 L, 119% predicted. The functional residual capacity is 5.12 L, 126% predicted. The residual volume is 3.96 L, 145% predicted. The residual volume: Total lung capacity ratio is 45%. Diffusing capacity: The diffusing capacity unadjusted for hemoglobin and carboxyhemoglobin is 5.5, 22% predicted. The diffusing capacity adjusted for alveolar volume is 0.90, 25% predicted. In comparison to previous pulmonary function testing on 08/22/2021 the pre bronchodilator FVC is unchanged from 3.58 L to 3.88 L. The pre bronchodilator FEV1 is unchanged from 2.05 L to 1.79 L. The total lung capacity is unchanged from 9.26 L to 8.85 L. The functional residual capacity is unchanged from 4.50 L to 5.12 L. The residual volume is unchanged from 3.90 L to 3.96 L. The diffusing capacity unadjusted for hemoglobin and carboxyhemoglobin is decreased from 9.5 to 5.5. The diffusing capacity adjusted for alveolar volume is decreased from 1.29 to 0.90. Impression: There is a severe obstructive abnormality. The increased total lung capacity with a normal residual volume: Total lung capacity ratio is consistent with large lungs. The diffusing capacity unadjusted for hemoglobin and carboxyhemoglobin is severely decreased and remains severely decreased when adjusted for alveolar volume. In comparison to previous pulmonary function testing on 08/22/2021 there has been a greater than anticipated time dependent decrease in the diffusing capacity with no significant change in the FVC, FEV1, total lung capacity, functional residual capacity or residual volume. Clinical correlation is recommended.
== END 2024-05-31 13:37 | disposition home or self-care (01) ==
PROVIDERS: PCP Nurse Practitioner; Visit Provider Nurse Practitioner
DX: J43.2 Centrilobular emphysema (principal); R94.2 Abnormal results of pulmonary function studies
CPT/HCPCS: 94060; 94375; 94618; 94726; 94729

== ENCOUNTER 2024-12-19 08:45 | Outpatient (CLI) | payer MEDICARE, SELFPAY ==
--- NOTE | ~2024-12-19 | CT_ITS ---
Exam: CT chest without contrast Clinical History: [Pulmonary nodule. ] Comparison: [ Several prior chest CTs dating back to 08/22/2021] Technique: Multiple axial CT images of the chest without with IV contrast. Sagittal and coronal reformatted images were obtained. FINDINGS: Lungs and pleura: [ Tracheobronchial tree is patent.] No pneumothorax. Severe emphysema similar to prior studies. Stable biapical scarring. No pleural effusion. There are a few small reticular and bandlike opacities in the lungs most prominent in the lower lungs likely atelectasis or scarring. Mediastinum and pulmonary susan: [ No mass or adenopathy.] Axillary/intramammary and supraclavicular: [ No mass or adenopathy.] Heart and great vessels: [ Normal heart size.[ [ No pericardial effusion.] [ No aneurysm.] Moderate atherosclerotic disease in the thoracic aorta. Chest Wall: [ Unremarkable.] Upper Abdomen: Visualized abdominal aorta is similar to prior studies. Osseous structures: [ No acute fracture lesion.] [ Multilevel degenerative change in the visualized spine.] Additional findings: [ None of significance.] IMPRESSION: 1. Severe emphysema with scattered scarring. 2. No pulmonary mass. Reviewed, dictated and finalized at location Q.
== END 2024-12-19 08:46 | disposition home or self-care (01) ==
LOC: MICIMG 08:47
PROVIDERS: PCP Nurse Practitioner; Visit Provider Nurse Practitioner
DX: R91.8 Other nonspecific abnormal finding of lung field (principal); J43.9 Emphysema, unspecified; J98.4 Other disorders of lung
CPT/HCPCS: 71250